=== PATIENT | male | born 1960 | race Caucasian/White ===

== ENCOUNTER 2023-04-05 15:32 | Outpatient (REF) | payer MEDICAID, SELFPAY ==
--- NOTE | ~2023-04-05 | US_ITS ---
EXAMINATION: US VENOUS ULTRASOUND WITH DOPPLER LOWER EXTREMITY, LEFT CLINICAL INFORMATION: Pain COMPARISON: None available. TECHNIQUE: Ultrasound of the deep veins is performed from the hip to the calf with compression sonography and color and pulse Doppler assessment. Spectral analysis with color-flow imaging is performed. FINDINGS: There is normal venous compression and respiratory variation and augmented flow. The visualized common femoral vein, superficial femoral vein, profunda femoral vein, popliteal vein, and the trifurcation region shows no evidence of deep venous thrombosis. There is no significant popliteal fossa cyst. US/US venous duplex LE LT IMPRESSION: No DVT demonstrated in the left lower extremity.
== END 2023-04-05 15:33 | disposition home or self-care (01) ==
LOC: HO.US 15:32
PROVIDERS: PCP Internal Medicine; Visit Provider Internal Medicine
DX: M79.605 Pain in left leg (principal)
CPT/HCPCS: 93971

== ENCOUNTER 2023-04-06 08:49 | Outpatient (REF) | payer MEDICAID, SELFPAY ==
[2023-04-06 12:25] LABS: Uric Acid 6.1 mg/dL (3.4-7.0)
== END 2023-04-06 08:50 | disposition home or self-care (01) ==
LOC: HO.HHCL 08:49
PROVIDERS: Visit Provider Internal Medicine
DX: M25.572 Pain in left ankle and joints of left foot (principal); R25.2 Cramp and spasm
CPT/HCPCS: 36415; 82550; 84550

== ENCOUNTER 2023-04-21 13:51 | Outpatient (REF) | payer MEDICAID, SELFPAY ==
--- NOTE | ~2023-04-21 | XR_ITS ---
EXAMINATION: XR LUMBOSACRAL SPINE CLINICAL INFORMATION: Chronic right-sided low back pain COMPARISON: There are no films to compare. This is due to technical failure TECHNIQUE: Three views of the lumbosacral spine. FINDINGS: Normal lordosis is maintained. There is no evidence of listhesis or compression injury. Mild scoliosis convex right apex at L2-L3. There is degenerative change here at all levels with some loss of disc height and spurring in the endplates. The inferior most vertebrae is transitional in nature. XR/XR lumbar spine 2-3V IMPRESSION: Mild degenerative changes with scoliosis. No acute finding. No listhesis or compression injury.
== END 2023-04-21 13:52 | disposition home or self-care (01) ==
LOC: HO.HHCX 13:51
PROVIDERS: Visit Provider Emergency Medicine
DX: M54.50 Low back pain, unspecified (principal); G89.29 Other chronic pain
CPT/HCPCS: 72100

== ENCOUNTER 2023-08-12 15:14 | Outpatient (REF) | payer MEDICAID, SELFPAY ==
--- NOTE | ~2023-08-12 | XR_ITS ---
EXAMINATION: XR KNEE, LEFT CLINICAL INFORMATION: Knee pain COMPARISON: None available. TECHNIQUE: Four views of the left knee. FINDINGS: No acute fracture, subluxation or joint effusion is evident. On the sunrise view, there are 2 osseous corticated fragments adjacent to the patellar apex, within the trochlea, perhaps intra-articular loose bodies XR/XR knee LT 4V IMPRESSION: Question intra-articular bodies within the patellofemoral joint space.
== END 2023-08-12 15:15 | disposition home or self-care (01) ==
LOC: HO.HHCX 15:14
PROVIDERS: Visit Provider Student in an Organized Health Care Education/Training Program
DX: M25.562 Pain in left knee (principal); G89.29 Other chronic pain
CPT/HCPCS: 73564

== ENCOUNTER 2023-10-26 13:41 | Outpatient (AMB) | payer MEDICAID, SELFPAY ==
--- NOTE | 2023-10-26 13:47 | MHC.OFFVIS ---
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 He describes his pain as sharp in nature. Most of the pain is along the medial aspect of his knee. He did injure his left knee approximately 1 year ago. He twisted his knee and had acute onset of pain. He has done physical therapy exercises which aggravated his pain. Has also tried Tylenol and anti-inflammatory medicines which gave him minimal relief. He was given a cortisone injection at his last visit which gave him no relief. The patient also reports progressively worsening neck pain. Credit Products Officer Name: [id number] Allergies aspirin [ASPIRIN] Allergy (Mild, Unverified 04/17/20 16:10) HIVES acetaminophen [Tylenol-Codeine #3] Allergy (Unknown, Verified 10/27/15 00:00) codeine [Tylenol-Codeine #3] Allergy (Unknown, Verified 10/27/15 00:00) Sulfa (Sulfonamide Antibiotics) Allergy (Unknown, Verified 10/27/15 00:00) [facility] Surgical History (Updated 10/26/23 @ 14:02 by Catina Heart CMA) Hx of neck surgery Social History (Updated 10/26/23 @ 14:03 by Catina Heart CMA) Patient Tobacco Use Status: Former Tobacco user Current occupational status: disabled Physical Exam Vital Signs: BMI result Body Mass Index 30.5 Const Other: Well-nourished well-developed very friendly male awake alert and oriented x3 in no acute distress Extrem Other: Bilateral lower extremity examination shows good capillary refill, no skin lesions noted, normal sensation light touch Left knee examination shows a minimal effusion, minimal crepitus with range of motion, tenderness along his medial joint line, positive Nayan's test, no instability Results Reviewed Results Reviewed: X-rays of the patient's left knee show mild joint space narrowing, no acute bony abnormalities Assessment & Plan Assessment & Plan (1) Left knee pain: Code(s): M25.562 - Pain in left knee Plan Mr. Knight presents with left knee pain and mechanical symptoms due to early degenerative joint disease as well as possible tearing of his medial meniscus. Thus, I will send the patient for an MRI of his left knee for further evaluation. I will see him back once the MRI is completed to discuss the findings and treatment options. I will also arrange for him to have a consultation in our pain management department for further evaluation of his progressively worsening neck pain. Feel free to call me at any time should questions regarding his orthopedic management arise. I spent 22 minutes in reviewing the patient's records and imaging studies, seeing the patient and documenting in the medical record. Orders: Orders MR knee LT wo con 10/26/23 M25.562 - Pain in left knee Referrals Pain Management Referral M54.2 - Cervicalgia Coding Level of Care Code Est Pt Level 2 (72295) Diagnoses Left knee pain M25.562
[2023-10-26 13:54] VITALS: BMI 30.5
== END 2023-10-26 14:27 | disposition home or self-care (01) ==
LOC: HO.HOS 13:41
PROVIDERS: PCP Internal Medicine; Referring Provider Internal Medicine; Visit Provider Orthopaedic Surgery
DX: M25.562 Pain in left knee (principal)
CPT/HCPCS: 99213

== ENCOUNTER → 2023-10-26 13:41 | Outpatient (BNVA) | payer MEDICAID, SELFPAY | PROVIDERS: PCP Internal Medicine; Visit Provider Orthopaedic Surgery | DX: M25.562 Pain in left knee (principal); M54.2 Cervicalgia | CPT/HCPCS: 99212 ==

== ENCOUNTER 2023-12-23 10:45 | Outpatient (REF) | payer MEDICAID, SELFPAY ==
--- NOTE | ~2023-12-23 | XR_ITS ---
EXAMINATION: XR CERVICAL SPINE CLINICAL INFORMATION: Radiculopathy cervical region. COMPARISON: None available. TECHNIQUE: 5 views of the cervical spine, inclusive of flexion and extension views, were obtained. FINDINGS: Punctate radiodensities overlie the left thoracic inlet possibly artifact versus foreign bodies and correlation with clinical exam recommended. Degenerative changes between the anterior arch of C1 and the odontoid. Straightening of the normal cervical lordosis. Visualization of C6-C7 vertebral body limited due to overlying soft tissues. Multilevel cervical spondylosis with prominent anterior osteophytes spanning C2-C7 with moderate loss of disc space height at C5-C6 and C6-C7. Minimal anterolisthesis of C4 on C5, C5 on C6, and of C6 on C7 with flexion which reduces with extension. XR/XR cervical spine w flex/ext IMPRESSION: 1. Multilevel cervical spondylosis most notable at C5-C6 and C6-C7. 2. Punctate radiodensities overlie left thoracic inlet possibly artifact versus foreign bodies and correlation with clinical exam recommended. Dedicated views of the chest with attention to this area could be considered for further evaluation.
== END 2023-12-23 10:46 | disposition home or self-care (01) ==
LOC: HO.XRAY 10:45
PROVIDERS: PCP Internal Medicine; Referring Provider Orthopaedic Surgery; Visit Provider Internal Medicine
DX: M54.12 Radiculopathy, cervical region (principal)
CPT/HCPCS: 72052; 99202

== ENCOUNTER 2023-12-23 10:45 | Outpatient (AMB) | payer MEDICAID, SELFPAY ==
--- NOTE | 2023-12-23 11:04 | MHC.OFFVIS ---
Vital Signs 12/23/23 11:06 Height 5 ft 6 in Weight 188 lb BMI 30.3 BP 143/86 H Blood Pressure Location Lt brachial Position Sitting Respiration 14 Pulse 76 Pulse Source Pulse Oximeter Pulse Oximetry (%) 95 Oxygen Delivery Method Room Air Intake Visit Reasons: CERVICALGIA Cigarette Packer Required: Yes Cigarette Packer Name: [id number] Allergies aspirin [ASPIRIN] Allergy (Mild, Verified 12/23/23 11:10) HIVES codeine [Tylenol-Codeine #3] Allergy (Unknown, Verified 12/23/23 11:10) Itching Sulfa (Sulfonamide Antibiotics) Allergy (Unknown, Verified 12/23/23 11:10) Itching Medication List - Last Reconciled 12/23/23 by Amparo Davison LPN atorvastatin 20 mg PO QAM azelastine 0.05% 1 drp ophthalmic (eye) Q12H cetirizine 10 mg PO DAILY hydrochlorothiazide 12.5 mg PO DAILY lidocaine-prilocaine 2.5-2.5 % topical Q12H PRN loratadine 10 mg PO QAM omeprazole 20 mg PO DAILY tramadol 50 mg PO DAILY HPI HPI CERVICALGIA: Details: 62-year-old male who presents today to the office for an evaluation of cervicalgia. A certified mixed signal design engineer was present during the visit. He has had neck pain for several years now. He had neck surgery in the past. Pain is rated a 6/10 on average. He reports feeling pain in his hands and legs. He reports pain in shoulders that radiates to both his arms associated with numbness and tingling in his fingers. He used to receive back injections in the past. He has not done physical therapy for his neck pain in the recent past. [facility] Surgical History (Updated 10/26/23 @ 14:02 by Catina Heart CMA) Hx of neck surgery Social History (Updated 10/26/23 @ 14:03 by Catina Heart CMA) Patient Tobacco Use Status: Former Tobacco user Current occupational status: disabled Review of Systems Const All systems reviewed & are unremarkable except as noted in HPI and below Physical Exam Vital Signs: Last Vital Signs Pulse 76 12/23/23 11:06 Resp 14 12/23/23 11:06 BP 143/86 H 12/23/23 11:06 Pulse Ox 95 12/23/23 11:06 Oxygen Delivery Method Room Air 12/23/23 11:06 BMI result Body Mass Index 30.3 General: Appears afebrile. Alert and oriented. Mood and affect appropriate. Follows and participates in conversation appropriately. Respiratory effort is unlabored. Able to transition from sit to stand unassisted. Ambulates with bilaterally normal heel strike and toe off. Hand strength is intact bilaterally. Bilateral hand outpatient therapist 5/5, finger adduction and abduction 5/5. Hand outpatient therapist on the right is slightly weaker than the left, but strong. Results Reviewed Results Reviewed: No imaging is available for review. Assessment & Plan Assessment & Plan (1) Cervical radiculopathy: Code(s): M54.12 - Radiculopathy, cervical region Category: Medical Plan A referral was provided to physical therapy for neck and back pain for two months. A script was also provided to the patient for physical therapy. If PT worsens his pain symptoms, he will follow up sooner. If the pain symptoms continue after two months of PT, we will order an MRI scan for further evaluation.? I ordered an x-ray of the cervical spine today to rule out instability. The patient can visit the radiology department today to complete the x-ray.? Follow up in three months. Scribed for Dr. Perkins by Gopi Milligan, medical claims representative, on 12/23/2023. I, Dr. Perkins, have personally reviewed and agree with the information entered by the scribe. Orders: Orders XR cervical spine w flex/ext 12/23/23 M54.12 - Radiculopathy, cervical region PT Evaluation and Treatment 12/23/23 M54.12 - Radiculopathy, cervical region Coding Level of Care Code New Pt Level 3 (72595) Diagnoses Cervical radiculopathy M54.12
[2023-12-23 11:06] VITALS: BP 143/86; PULSE 76; RESP 14; O2SAT 95; BMI 30.3
== END 2023-12-23 11:25 | disposition home or self-care (01) ==
PROVIDERS: PCP Internal Medicine; Referring Provider Orthopaedic Surgery; Visit Provider Internal Medicine
DX: M54.12 Radiculopathy, cervical region (principal)
CPT/HCPCS: 99203

== ENCOUNTER 2023-12-29 08:42 | Outpatient (REF) | payer MEDICAID, SELFPAY ==
[2023-12-29 11:57] LABS: Anion Gap 12 (12-20); Blood Urea Nitrogen 9 mg/dL (9-16); Calcium 9.2 mg/dL (8.4-10.2); Carbon Dioxide 27 mmol/L (22-29); Chloride 106 mmol/L (96-108); Cholesterol 240 mg/dL (<200); Estimated Glomerular Filt Rate > 60; Glucose Random 136 mg/dL (60-115); HDL Cholesterol 35 mg/dL (>40); LDL Cholesterol Calculated 177 mg/dL (<100); Potassium 3.5 mmol/L (3.3-5.1); Sodium 141 mmol/L (135-145); Triglycerides 140 mg/dL (<150)
== END 2023-12-29 08:43 | disposition home or self-care (01) ==
LOC: HO.HHCL 08:42
PROVIDERS: Visit Provider Internal Medicine Geriatric Medicine
DX: I10 Essential (primary) hypertension (principal); E78.5 Hyperlipidemia, unspecified
CPT/HCPCS: 36415; 80048; 80061

== ENCOUNTER 2024-01-09 17:46 | Outpatient (REF) | payer MEDICAID, SELFPAY | END 2024-01-09 17:47 | disposition home or self-care (01) | LOC: HO.MRI 17:46 | PROVIDERS: PCP Internal Medicine; Visit Provider Orthopaedic Surgery | DX: Z13.89 Encounter for screening for other disorder (principal) ==

== ENCOUNTER 2024-01-25 15:46 | Outpatient (REF) | payer MEDICAID, SELFPAY ==
--- NOTE | ~2024-01-25 | XR_ITS ---
EXAMINATION: X-ray Pre-MRI screening CLINICAL INFORMATION: Pre-MRI screening COMPARISON: None. TECHNIQUE: AP view of the chest, 2 views of the right forearm and 2 views of the left femur FINDINGS: Chest: No medical office manager or foreign body seen. The cardiac silhouette is slightly enlarged. The thoracic aorta may be ectatic. Lung volumes are low. Lungs are clear. No pleural effusion or pneumothorax. Right forearm: Multiple radiopaque soft tissue foreign bodies project over the distal humeral shaft and anterior medial soft tissues in the upper arm. Smaller radiopaque soft tissue foreign bodies project over the radial side of the forearm. No fracture or dislocation. Normal joint spaces. Left femur: No radiopaque foreign body. Bone alignment is normal. No fracture or dislocation. Mild arthritis at the left hip joint with small osteophytes. Small osteophytes at the patellofemoral joint and osteophyte at the patellar tendon insertion. Rotated lateral view difficult to assess for joint effusion. No joint effusion appreciated. XR/XR pre mri screening IMPRESSION: Foreign bodies seen in the upper arm adjacent to the distal humerus and proximal forearm adjacent to the shaft of the radius. No foreign body or medical office manager seen in the chest or left femur.
--- NOTE | ~2024-01-25 | MR_ITS ---
EXAMINATION: MR KNEE WITHOUT CONTRAST, LEFT CLINICAL INFORMATION: Pain in the left knee. COMPARISON: X-ray of the left knee August 2023. TECHNIQUE: MRI of the knee without contrast was performed using routine sequences on a high-field scanner. FINDINGS: MENISCI: Medial Meniscus: There is oblique increased signal extending from the periphery of the meniscus to the tibial articular surface and the posterior horn and body indicative of meniscal tear. Tiny meniscal cyst abuts the periphery of the posterior horn. Lateral Meniscus: Intact. LIGAMENTS: Cruciate: There is mucoid degeneration of the anterior cruciate ligament. PCL intact. Enthesopathic cysts noted at the anterior cruciate ligament tibial attachment. Collateral: Intact. EXTENSOR MECHANISM: Intact. ARTICULAR CARTILAGE/BONE: Patellofemoral Compartment: Normal. Medial Compartment: Normal. Lateral Compartment: Normal. JOINT FLUID AND BURSAE: Trace Andrews's cyst. MR/MR knee LT wo con IMPRESSION: 1. Tear of the medial meniscus. 2. Mucoid degeneration of the anterior cruciate ligament.
== END 2024-01-25 15:47 | disposition home or self-care (01) ==
LOC: HO.MRI 15:46
PROVIDERS: PCP Internal Medicine; Visit Provider Orthopaedic Surgery
DX: M25.562 Pain in left knee (principal)
CPT/HCPCS: 73721

== ENCOUNTER 2024-02-07 13:32 | Outpatient (AMB) | payer MEDICAID, SELFPAY ==
--- NOTE | 2024-02-07 13:33 | MHC.OFFVIS ---
Intake Visit Reasons: OV-LT knee MRI review Intake Note: Paul 62 year old male presents with complaints of progressively worsening left knee pain and giving way. He describes his pain as sharp in nature. Most of the pain is along the medial aspect of his knee. He did injure his left knee approximately 1 year ago. He twisted his knee and had acute onset of pain. He has done physical therapy exercises which aggravated his pain. Has also tried Tylenol and anti-inflammatory medicines which gave him minimal relief. He was given a cortisone injection at his last visit which gave him no relief. The patient also reports progressively worsening neck pain. Communications Project Manager Required: Yes Communications Project Manager Language: Process Engineering Intern Services: Communications Project Manager Present Communications Project Manager Name: GILL Adkins/JOSIAS Allergies aspirin [ASPIRIN] Allergy (Mild, Verified 02/07/24 13:33) HIVES codeine [Tylenol-Codeine #3] Allergy (Unknown, Verified 02/07/24 13:33) Itching Sulfa (Sulfonamide Antibiotics) Allergy (Unknown, Verified 02/07/24 13:33) Itching Medication List - Last Reconciled 02/07/24 by Joni Draper MD atorvastatin 20 mg PO QAM azelastine 0.05% 1 drp ophthalmic (eye) Q12H cetirizine 10 mg PO DAILY hydrochlorothiazide 12.5 mg PO DAILY lidocaine-prilocaine 2.5-2.5 % topical Q12H PRN loratadine 10 mg PO QAM omeprazole 20 mg PO DAILY tramadol 50 mg PO DAILY PFSH Surgical History Hx of neck surgery Social History Patient Tobacco Use Status: Former Tobacco user Current occupational status: disabled Physical Exam Const Other: Well-nourished well-developed very friendly male awake alert and oriented x3 in no acute distress Extrem Other: Bilateral lower extremity examination shows good capillary refill, no skin lesions noted, normal sensation light touch Left knee examination shows a minimal effusion, mild crepitus with range of motion, tenderness along his medial and lateral joint lines, positive Nayan's test, no instability Results Reviewed Results Reviewed: MRI of the patient's left knee shows mild diffuse degenerative changes as well as tearing of his medial and lateral menisci, no acute bony abnormalities Assessment & Plan Assessment & Plan (1) Left knee pain: Code(s): M25.562 - Pain in left knee Category: Medical Plan Mr. Knight presents with left knee pain and mechanical symptoms due to tearing of his medial and lateral menisci. I had a lengthy discussion with the patient regarding the treatment options. At this point he appears to be failing continued non operative treatments. The risks and benefits arthroscopic surgery were discussed at length with the patient. The patient is considering undergoing left knee arthroscopic surgery later this year. He will contact my office to pick a surgery date if he chooses to do so. Does understand that he may not get 100% relief from the surgery depending on the severity of his degenerative changes. Surgery would most likely involve left knee arthroscopic partial medial and lateral meniscectomies. Feel free to call me at any time should questions regarding his orthopedic management arise. I spent 21 minutes in reviewing the patient's records and imaging studies, seeing the patient and documenting in the medical record. Coding Level of Care Code Est Pt Level 3 (05632) Diagnoses Left knee pain M25.562
== END 2024-02-07 13:40 | disposition home or self-care (01) ==
LOC: HO.HOS 13:32
PROVIDERS: PCP Internal Medicine; Referring Provider Internal Medicine; Visit Provider Orthopaedic Surgery
DX: M25.562 Pain in left knee (principal); S83.242A Other tear of medial meniscus, current injury, left knee, initial encounter; S83.282A Other tear of lateral meniscus, current injury, left knee, initial encounter
CPT/HCPCS: 99213

== ENCOUNTER → 2024-02-07 13:32 | Outpatient (BNVA) | payer MEDICAID, SELFPAY | PROVIDERS: PCP Internal Medicine; Visit Provider Orthopaedic Surgery | DX: S83.282A Other tear of lateral meniscus, current injury, left knee, initial encounter (principal); S83.242A Other tear of medial meniscus, current injury, left knee, initial encounter | CPT/HCPCS: 99212 ==

== ENCOUNTER 2024-02-22 21:49 | Emergency (ER) | payer MEDICAID, SELFPAY ==
[2024-02-22 22:02] VITALS: BP 137/80; PULSE 70; RESP 18; TEMP 36.8; O2SAT 98; BMI 30.5
[2024-02-23 00:24] VITALS: BP 165/95; PULSE 63; RESP 16; TEMP 36.4; O2SAT 97
--- NOTE | 2024-02-23 01:27 | PC.NURSE ---
Patient was lying in bed calm and cooperative. of patient was screaming we need a doctor. This nurse went in to see what was happening and how i could help and they said, are you the doctor. I explained to them that i was their nurse and would be providing their care tonight. They said we are leaving and got up and walked out.
== END 2024-02-23 01:30 | disposition left against medical advice (07) ==
PROVIDERS: Emergency Provider Emergency Medicine
DX: R09.89 Other specified symptoms and signs involving the circulatory and respiratory systems (principal)
CPT/HCPCS: 99281; 99283

== ENCOUNTER 2024-06-07 09:52 | Outpatient (REF) | payer MEDICAID, SELFPAY ==
[2024-06-07 11:51] LABS: Alanine Aminotransferase 24 U/L (0-40); Albumin Level 4.1 g/dL (3.5-5.0); Alkaline Phosphatase 62 U/L (39-117); Anion Gap 12 (12-20); Aspartate Amino Transferase 29 U/L (5-37); Bilirubin Total 0.3 mg/dL (0.0-1.0); Blood Urea Nitrogen 12 mg/dL (9-16); Carbon Dioxide 25 mmol/L (22-29); Chloride 106 mmol/L (96-108); Cholesterol 227 mg/dL (<200); Estimated Glomerular Filt Rate > 60; Glucose Random 163 mg/dL (60-115); HDL Cholesterol 33 mg/dL (>40); LDL Cholesterol Calculated 160 mg/dL (<100); Potassium 3.9 mmol/L (3.3-5.1); Sodium 139 mmol/L (135-145); Total Protein 7.5 g/dL (6.5-8.0); Triglycerides 174 mg/dL (<150)
[2024-06-07 12:15] LABS: Prostate Specific Antigen 5.86 ng/mL (<0.05-4.0)
== END 2024-06-07 09:53 | disposition home or self-care (01) ==
LOC: HO.HHCL 09:52
PROVIDERS: Visit Provider Internal Medicine Geriatric Medicine
DX: Z12.5 Encounter for screening for malignant neoplasm of prostate (principal); I10 Essential (primary) hypertension; Z79.899 Other long term (current) drug therapy
CPT/HCPCS: 36415; 80053; 80061; 84153

== ENCOUNTER 2024-10-16 09:26 | Outpatient (REF) | payer MEDICAID, SELFPAY ==
[2024-10-16 11:20] LABS: MANUAL DIFF FLAG NO
[2024-10-16 11:30] LABS: Basophils Absolute Auto 0.1 X10*3/uL (0.0-0.2); Basophils Percent Auto 0.6 % (0-2); Eosinophils Absolute Auto 0.2 X10*3/uL (0.0-0.4); Eosinophils Percent Auto 2.3 % (0-4); Hemoglobin 14.6 g/dl (14.0-18.0); Imm Gran Abs Auto 0.09 X10*3/uL (0.00-0.03); Imm Gran Pct Auto 1.1 % (0.0-0.4); Lymphocytes Absolute Auto 3.1 X10*3/uL (1.2-4.9); Lymphocytes Percent Auto 39.8 % (20-40); Mean Corpuscular HGB Conc 34.8 g/dl (31.0-36.0); Mean Corpuscular Hemoglobin 30.4 pg (27.0-33.0); Mean Corpuscular Volume 87.3 fL (80.0-98.0); Mean Platelet Volume 10.4 fL (9.4-12.4); Monocytes Absolute Auto 0.6 X10*3/uL (0.1-1.2); Monocytes Percent Auto 7.9 % (2-11); Neutrophils Absolute Auto 3.8 x10*3/uL (2.0-8.3); Neutrophils Percent Auto 48.3 % (45-73); Platelet Count 356 X10*3/uL (160-400); Red Blood Count 4.81 X10*6/uL (4.60-5.80); Red Cell Distribution Width 13.8 % (11.0-16.0); White Blood Count 7.9 X10*3/uL (4.8-10.8)
[2024-10-16 11:32] LABS: Anion Gap 12 (12-20); Blood Urea Nitrogen 10 mg/dL (9-16); Calcium 8.7 mg/dL (8.4-10.2); Carbon Dioxide 25 mmol/L (22-29); Chloride 108 mmol/L (96-108); Estimated Glomerular Filt Rate > 60; Glucose Random 206 mg/dL (60-115); Potassium 3.7 mmol/L (3.3-5.1); Sodium 141 mmol/L (135-145)
[2024-10-16 11:55] LABS: Prostate Specific Antigen 5.92 ng/mL (<0.05-4.0)
== END 2024-10-16 09:27 | disposition home or self-care (01) ==
LOC: HO.HHCL 09:26
PROVIDERS: Visit Provider Internal Medicine Geriatric Medicine
DX: Z01.818 Encounter for other preprocedural examination (principal); R97.20 Elevated prostate specific antigen [PSA]
CPT/HCPCS: 36415; 80048; 84153; 85025

== ENCOUNTER 2025-01-28 09:21 | Outpatient (REF) | payer MEDICAID, SELFPAY ==
[2025-01-28 11:52] LABS: Estimated Average Glucose 189 mg/dL; Hemoglobin A1c % 8.2 % (<6.0)
== END 2025-01-28 09:22 | disposition home or self-care (01) ==
LOC: HO.HHCL 09:21
PROVIDERS: PCP Internal Medicine Geriatric Medicine; Visit Provider Internal Medicine Geriatric Medicine
DX: R73.9 Hyperglycemia, unspecified (principal)
CPT/HCPCS: 36415; 83036

== ENCOUNTER 2025-03-28 15:36 | Outpatient (REF) | payer MEDICAID, SELFPAY ==
--- NOTE | ~2025-03-28 | XR_ITS ---
EXAMINATION: XR THORACIC SPINE CLINICAL INFORMATION: PAIN COMPARISON: None available. TECHNIQUE: 3 views of the thoracic spine were obtained. FINDINGS: There is no significant scoliosis. There is a normal thoracic kyphosis. There is normal alignment without subluxation. There is no fracture, compression deformity, or suspicious bone lesion. There is normal facet alignment. There is mild multilevel disc degeneration present. No soft tissue abnormalities. XR/XR thoracic spine 2V IMPRESSION: 1. No acute findings of the thoracic spine. Mild multilevel disc degeneration. Electronically signed by: Tony Bradley MD 03/28/2025 04:51 PM EDT
--- OUTSIDE RECORDS SUMMARY | 2025-03-28 15:00 | XMS_ITS | Encounter Summary ---
Author Organization [employer] Address [address] [facility] [address] [place] [address] Care Team Providers Care Letter Of Credit Clerk Name Role Phone Name, Korey MAIN Primary Care Provider [phone] Reason for Visit * Reason Comments Back Pain Encounter Details Date Type Department Care Team ([facility] st Contact Info) Description 03/28/2025 3:00 PM EDT Office Visit [facility] [place] [address] [place] [address] Mid back pain (Primary Dx) Social History Tobacco Use Types Packs/Day Years Used Date Smoking Tobacco: Former Cigarettes Passive Smoke Exposure: Past Smokeless Tobacco: Former Tobacco Cessation:Counseling Given: Not Answered Alcohol Use Standard Drinks/Week Comments Never 0 (1 standard drink = 0.6 oz pur e alcohol) Alcohol Answer Date Recorded Frequency of Alcohol Consumption Not on file 06/05/2024 Average Number of Drinks Not on file 024 Frequency of Binge Drinking Not on file 11/2023 Score 0 06/05/2024 Depression Answer Date Recorded Patient Health Questionnaire-9 Score 0 09/14/2023 Patient Health Questionnaire-9 Score 0 09/14/2023 Last PHQ-9: Questionnaire Data Not on file 0 09/14/2023 Housing Stability Answer Date Recorded What is your housing situation today? I have ronald ramírez 09/14/[address] you li ve. Do you have problems with any of the following? None of the above 09/14/2023 Food Insecurity Answer Date Recorded Within the past 12 months, y ou worried that your food would run out before you got money to buy more: Never True 09/14/2023 Within the past 12 months,th e food you bought just didn't last and you didn't have enough money to get more: Never True Transportation Answer Date Recorded In the past 12 months, has l ack of transportation kept you from medical appts, meetings, work or from getting things needed for daily living? No 09/14/2023 Utilities Answer Date Recorded In the past 12 months, has t he electric, gas, oil or water company threatened to shut off services in your home? No 09/14/2023 Depression Answer Date Recorded Patient Health Questionnaire-2 Score 0 09/14/2023 Sex and Gender Information Value Date Recorded Sex Assigned at Male 05/31/2022 10:14 AM EDT Legal Sex Male 10:14 AM EDT Gender Identity Male 05/31/2022 10:14 AM EDT Sexual Orientation Choose not to disclose 2021 10:14 AM EDT documented as of this encounter Last Filed Vital Signs Vital Sign Reading Time Taken Comments Blood Pressure 148/84 03/28/2025 3:12 PM EDT Pulse 75 03/28/2025 3:12 PM EDT Temperature 36.8 C (98.2 F) 03/28/2025 3:12 PM EDT Respiratory Rate 18 03/28/2025 3:12 PM EDT Oxygen Saturation 97% 03/28/2025 3:12 PM EDT Inhaled Oxygen Concentration - - Weight 82.6 kg (182 lb) 03/28/2025 3:12 PM EDT Height - - Body Mass Index 26.88 02/15/2025 2:53 PM EDT documented in this encounter Plan of Treatment Upcoming Encounters Date Type Department Care Team (Late st Contact Info) Description 04/03/2025 11:30 AM EDT Clinical Support [facility] [address] [place] [phone] Katharina Matt RN 06/17/2025 3:15 PM EST Office Visit [facility] [address] [place] [phone] Name, MD Korey [address] [place] [phone] Scheduled Orders Name Type Priority Associated Diagnoses Orde r Schedule XR Thoracic Spine 2 Views Imaging Routine Mid back pain Expected: 03/28/2025, Expires: 03/28/2026 documented as of this encounter Visit Diagnoses Diagnosis Mid back pain- Primary documented in this encounter Additional Health Concerns Assessment Noted Time PHQ-9 Depression Total Score: 0 09/14/19 24 2:31 PM EST documented as of this encounter Care Teams Letter Of Credit Clerk Relationship Specialty Start Date End Date Name, MD Korey [address] [place] [address] PCP - General Family Medicine 11/05/15 documented as of this encounter
--- OUTSIDE RECORDS SUMMARY | 2025-03-28 16:02 | XMS_ITS | Encounter Summary ---
Author Organization [employer] Address [address] [facility] [address] [place] [address] Care Team Providers Care Returns Processor Name Role Phone Name, Korey MAIN Primary Care Provider [phone] Encounter Details Date Type Department Care Team (Latest Contact Info) Description 03/28/2025 Travel Social History Tobacco Use Types Packs/Day Years Used Date Smoking Tobacco: Former Cigarettes Passive Smoke Exposure: Past Smokeless Tobacco: Former Alcohol Use Standard Drinks/Week Comments Never 0 [...] AM EDT documented as of this encounter Plan of Treatment Upcoming Encounters Date Type Department Care Team (Late st Contact Info) Description 04/03/2025 11:30 AM EDT Clinical Support [address] [phone] Katharina Matt RN 06/17/2025 3:15 PM EST Office Visit [address] [address] Name, MD Korey [address] [place] [phone] documented as of this encounter Visit Diagnoses Not on filedocumented in this encounter Additional Health Concerns Assessment Noted Time PHQ-9 Depression Total Score: 0 09/14/19 24 2:31 PM EST documented as of this encounter Care Teams Returns Processor Relationship Specialty Start Date End Date Name, MD Korey [address] [place] [phone] PCP - General Family Medicine 11/05/15 documented as of this encounter
--- OUTSIDE RECORDS SUMMARY | 2025-03-28 16:02 | XMS_ITS | Encounter Summary ---
Author Organization [employer] Address [address] [place] [address] [address] [place] [address] Care Team Providers Care Body And Frame Man Name Role Phone Name, Korey MAIN Primary Care Provider [phone] Reason for Visit * Reason Comments Med Refill Encounter Details Date Type Department Care Team (Late Contact Info) Description 04/28/2023 Refill [facility] [address] [place] [address] Name, MD Korey [address] [place] [address] Arthralgia of multiple joints Social History Tobacco Use Types Packs/Day Years Used Date Smoking Tobacco: Never Smokeless Tobacco: Never Alcohol Use Standard Drinks/Week Comments Never 0 (1 standard drink = 0.6 oz pur e alcohol) PHQ-2 Answer Date Recorded Patient Health Questionnaire-2 Score 0 08/18/2022 Depression Answer Date Recorded Patient Health Questionnaire-2 Score 0 08/18/2022 Sex and Gender Information Value Date Recorded Sex Assigned at Male 05/31/2022 10:14 AM EDT Legal Sex Male 10:14 AM EDT Gender Identity Male 05/31/2022 10:14 AM EDT Sexual Orientation Choose not to disclose 2021 10:14 AM EDT documented as of this encounter Plan of Treatment Upcoming Encounters Date Type Department Care Team (Late Contact Info) Description 04/03/2025 11:30 AM EDT Clinical Support [facility] [address] [place] [phone] Katharina Matt RN 06/17/2025 3:15 PM EST Office Visit [facility] [address] [place] [phone] Name, MD Korey [address] [place] [address] documented as of this encounter Visit Diagnoses Diagnosis Arthralgia of multiple joints Pain in joint, multiple sites documented in this encounter Care Teams Body And Frame Man Relationship Specialty Start Date End Date Name, MD Korey [address] [place] [address] PCP - General Family Medicine 11/05/15 documented as of this encounter
--- OUTSIDE RECORDS SUMMARY | 2025-03-28 16:02 | XMS_ITS | Encounter Summary ---
Author Organization [employer] Address [address] [place] [address] 7 [place] [address] Care Team Providers Care Detective Sergeant Name Role Phone NameKorey MD Primary Care Provider [phone] Reason for Visit * Reason Comments Med Refill Encounter Details Date Type Department Care Team ([facility] Contact Info) Description 04/05/[address] [phone] Korey Ocampo MD [address] [place] [phone] Med Refill Social History Tobacco Use Types Packs/Day Years [...] Description 04/03/2025 11:30 AM EDT Clinical Support [address] [phone] Katharina Matt RN 06/17/2025 3:15 PM EST Office Visit [address] [phone] Korey Ocampo MD [address] [place] [address] documented as of this encounter Visit Diagnoses Diagnosis Non-seasonal allergic rhinitis, unspecified trigger documented in this encounter Care Teams Detective Sergeant Relationship Specialty Start Date End Date Name, [place] [address] PCP - General Family Medicine 11/05/15 documented as of this encounter
--- OUTSIDE RECORDS SUMMARY | 2025-03-28 16:02 | XMS_ITS | Encounter Summary ---
Author Organization [employer] Address [address] [facility] 7t [place] [address] Care Team Providers Care Esl Professor Name Role Phone Name, Korey MAIN Primary Care Provider [phone] Reason for Visit * Reason Onset Date Comments oct recalls 03/28/2025 Encounter Details Date Type Department Care Team (Late st Contact Info) Description 03/28/[address] [facility] [address] [place] [address] Alex Márquez MA oct recalls Social History Tobacco Use Types Packs/Day Years [...] AM EDT documented as of this encounter Miscellaneous Notes * Telephone Encounter - Alex Márquez MA - 03/28/2025 1:47 PM EDT Telephone call to patient to schedule the following recall: Visit type: Follow up Appointment notes: HTN and DM Patient agree to appointment on 06/17/25 at 3;15 PM with Name. documented in this encounter Plan of Treatment Upcoming Encounters Date Type Department Care Team (Late st Contact Info) Description 04/03/2025 11:30 AM EDT Clinical Support [facility] [address] [place] [phone] Katharina Matt RN 06/17/2025 3:15 PM EST Office Visit [facility] [address] [place] [phone] Name, MD Korey [address] [place] [address] documented as of this encounter Visit Diagnoses Not on filedocumented in this encounter Additional Health Concerns Assessment Noted Time PHQ-9 Depression Total Score: 0 09/14/19 24 2:31 PM EST documented as of this encounter Care Teams Esl Professor Relationship Specialty Start Date End Date NameKorey MD [address] [place] [phone] PCP - General Family Medicine 11/05/15 documented as of this encounter
--- OUTSIDE RECORDS SUMMARY | 2025-03-28 16:02 | XMS_ITS | Encounter Summary ---
Author Organization [employer] Address [address] [facility] 7t [place] [address] Care Team Providers Care Warehouse General Laborer Name Role Phone Name, Korey MAIN Primary Care Provider [phone] Reason for Visit * Reason Onset Date Comments Ortho Appt 09/28/2023 Encounter Details Date Type Department Care Team ([facility] st Contact Info) Description 09/28/2023 Telephone [facility] [address] [place] [address] Name, MD Korey [address] [place] [address] Ortho Appt Social History Tobacco Use Types Packs/Day Years Used Date Smoking Tobacco: Former Cigarettes Passive Smoke Exposure: Never Smokeless Tobacco: Never Alcohol Use Standard Drinks/Week Comments Never 0 (1 standard drink = 0.6 oz pur e alcohol) Depression Answer Date Recorded Patient Health Questionnaire-9 [...] encounter Miscellaneous Notes * Telephone Encounter - Ca Wood - 09/28/2023 12:06 PM EST Pt call requesting senior medical writer to schedule appt with [facility], senior medical writer do so and make appt for pt in October 25 at 2:00 PM documented in this encounter Plan of Treatment Upcoming Encounters Date Type Department Care Team (Late st Contact Info) Description 04/03/2025 11:30 AM EDT Clinical Support [facility] [address] [place] [phone] Katharina Matt RN 06/17/2025 3:15 PM EST Office Visit [facility] [address] [place] [phone] Name, MD Korey [address] [place] [address] documented as of this encounter Visit Diagnoses Not on filedocumented in this encounter Additional Health Concerns Assessment Noted Time PHQ-9 Depression Total Score: 0 09/14/19 24 2:31 PM EST documented as of this encounter Care Teams Warehouse General Laborer Relationship Specialty Start Date End Date NameKorey MD [address] [place] [phone] PCP - General Family Medicine 11/05/15 documented as of this encounter
--- OUTSIDE RECORDS SUMMARY | 2025-03-28 16:02 | XMS_ITS | Encounter Summary ---
Author Organization [employer] Address [address] [facility] 7t [place] [address] Care Team Providers Care Audio Video Repairer Name Role Phone Name, Korey MAIN Primary Care Provider [phone] Reason for Visit * Reason Comments Med Refill Encounter Details Date Type Department Care Team (Late st Contact Info) Description 07/26/2023 Refill [facility] [address] [place], [place] [phone] Name, MD Korey [address] [place], [place] [phone] Social History Tobacco Use Types Packs/Day Years Used Date Smoking Tobacco: Never Smokeless Tobacco: Never Alcohol Use Standard Drinks/Week Comments Never 0 (1 standard drink = 0.6 oz pur e alcohol) PHQ-2 Answer Date Recorded Patient Health Questionnaire-2 Score 0 08/18/2022 Housing Stability Answer Date Recorded What is your housing situation today? I have ronald ramírez 05/26/[address] you li ve. Do you have problems with any of the following? None of the above 05/26/2023 Food Insecurity Answer Date Recorded Within the past 12 months, y ou worried that your food would run out before you got money to buy more: Never True 05/26/2023 Within the past 12 months,th e food you bought just didn't last and you didn't have enough money to get more: Never True Transportation Answer Date Recorded In the past 12 months, has l ack of transportation kept you from medical appts, meetings, work or from getting things needed for daily living? No 05/26/2023 Utilities Answer Date Recorded In the past 12 months, has t he electric, gas, oil or water company threatened to shut off services in your home? No 05/26/2023 Depression Answer Date Recorded Patient Health Questionnaire-2 [...] Description 04/03/2025 11:30 AM EDT Clinical Support [facility] [address] [place] [address] Katharina Matt RN 06/17/2025 3:15 PM EST Office Visit [facility] [address] [place] [phone] Name, MD Korey [address] [place] [address] documented as of this encounter Visit Diagnoses Not on filedocumented in this encounter Care Teams Audio Video Repairer Relationship Specialty Start Date End Date Name, MD Korey [address] [place] [address] PCP - General Family Medicine 11/05/15 documented as of this encounter
--- OUTSIDE RECORDS SUMMARY | 2025-03-28 16:02 | XMS_ITS | Encounter Summary ---
Author Organization [employer] Address [address] [place] [address] 7t [place] [address] Care Team Providers Care Field Sampling Technician Name Role Phone Name, Korey MAIN Primary Care Provider [phone] Reason for Visit * Reason Comments Med Refill Encounter Details Date Type Department Care Team (Late Contact Info) Description 04/11/2023 Refill [facility] [address] [place], [place] [phone] [facility] [address] [place], [place] [phone] Arthralgia of multiple joints Social History Tobacco [...] Description 04/03/2025 11:30 AM EDT Clinical Support [address] [address] Katharina Matt RN 06/17/2025 3:15 PM EST Office Visit [address] [phone] Name, MD Korey [address] [place] [address] documented as of this encounter Visit Diagnoses Diagnosis Arthralgia of multiple joints Pain in joint, multiple sites documented in this encounter Care Teams Field Sampling Technician Relationship Specialty Start Date End Date Name, MD Korey [address] [place] [address] PCP - General Family Medicine 11/05/15 documented as of this encounter
--- OUTSIDE RECORDS SUMMARY | 2025-03-28 16:02 | XMS_ITS | Encounter Summary ---
Author Organization [employer] Address [address] [facility] 7t [place] [address] Care Team Providers Care Specialist Field Engineer Name Role Phone Name, Korey MAIN Primary Care Provider [phone] Reason for Visit * Reason Comments Med Refill Encounter Details Date Type Department Care Team ([facility] st Contact Info) Description 10/11/2023 Refill [facility] [address] [place], [place] [phone] Name, MD Korey [address] [place] [address] Social History Tobacco Use Types Packs/Day Years [...] Description 04/03/2025 11:30 AM EDT Clinical Support [address] [address] Katharina Matt RN 06/17/2025 3:15 PM EST Office Visit [address] [address] Name, MD Korey [address] [place] [address] documented as of this encounter Visit Diagnoses Not on filedocumented in this encounter Additional Health Concerns Assessment Noted Time PHQ-9 Depression Total Score: 0 09/14/19 24 2:31 PM EST documented as of this encounter Care Teams Specialist Field Engineer Relationship Specialty Start Date End Date NameKorey MD [address] [place] [address] PCP - General Family Medicine 11/05/15 documented as of this encounter
--- OUTSIDE RECORDS SUMMARY | 2025-03-28 16:02 | XMS_ITS | Encounter Summary ---
Author Organization [employer] Address [address] [facility] 7t [place] [address] Care Team Providers Care Meter Reader Inspector Name Role Phone Name, Korey MAIN Primary Care Provider [phone] Encounter Details Date Type Department Care Team ([facility] st Contact Info) Description 01/28/2025 Results Follow-Up [facility] [address] [place], [place] [phone] Name, MD Korey [address] [place] [address] Hemoglobin A1c Social History Tobacco Use Types Packs/Day Years [...] encounter Miscellaneous Notes * Telephone Encounter - Angela Caro RN - 01/28/2025 12:28 PM EDT T/C to pt via [employer] interpreter Juliana #[id number]. Advised of message from PCP. Pt declines appt offeredwith pcp today. States he will be at [facility]. RN asked if it possible for pt to change plans d/t urgent need for follow up. Pt states that he will be at [facility] and cannot miss it. Pt also states he isnot available tomorrow but agrees to come to [facility] as soon as his able to. * Telephone Encounter - Angela Caro RN - 01/28/2025 12:20 PM EDT ----- Message from Korey Ocampo MD sent at 01/28/2025 12:18 PM EDT ----- This is consistent with DM, can you put him in my schedule today to start him on meds and dietary recommendations ----- Message ----- From: Interface, Lab Results In Sent: 01/28/2025 11:52 AM EDT To: Korey Ocampo MD documented in this encounter Plan of Treatment Upcoming Encounters Date Type Department Care Team (Late st Contact Info) Description 04/03/2025 11:30 AM EDT Clinical Support [address] [address] Katharina Matt, RN 06/17/2025 3:15 PM EST Office Visit [address] [address] Name, MD Korey [address] [place] [address] documented as of this encounter Visit Diagnoses Not on filedocumented in this encounter Additional Health Concerns Assessment Noted Time PHQ-9 Depression Total Score: 0 09/14/19 24 2:31 PM EST documented as of this encounter Care Teams Meter Reader Inspector Relationship Specialty Start Date End Date Name, MD Korey [address] [place] [address] PCP - General Family Medicine 11/05/15 documented as of this encounter
--- OUTSIDE RECORDS SUMMARY | 2025-03-28 16:02 | XMS_ITS | Clinical Summary ---
Author Organization [employer] Address [address] [place] [address] [address] [place] [address] Care Team Providers Care Director Advertising Name Role Phone Name, Korey MAIN Primary Care Provider [phone] Allergies Active Allergy Reactions Criticality Noted Date Comments Acetaminophen 12/04/2010 Other reaction(s): unspecified Acetaminophen-Codeine 02/21/2012 Aspirin 12/04/2010 Other reaction(s): unspecified Codeine 12/04/2010 Other reaction(s): unspecified Sulfamethoxazole 12/04/2010 Other reaction(s): unspecified Sulfamethoxazole-Trimethoprim 2011 Trimethoprim 12/04/2010 Other reaction(s): unspecified Medications White Petrolatum-Minera l Oil (Wh Petrol-Mineral Oil-Lanolin) 0.1-0.1 % ointment Use TID to both eyes prn irritation 022 Active Multiple Vitamins-Minerals (Multi-Day Plus Minerals) tablet one tab once a day 022 Active mirtazapine (Remeron) 30 MG tablet Take 1 tablet by mouth at bed time. Active loratadine (Claritin) 10 MG tablet Take 1 tablet (10 mg) by mouth in the morning. 30 tablet 023 Active Blood Pressure kitIndications:Be nign essential HTN Use as directed daily 1 kit 023 Active omeprazole (PriLOSEC) [address] capsuleIndication s:Heartburn TAKE 1 CAPSULE BY MOUTH DAILY 30-60 MINUTES BEFORE A MEAL. 90 capsule 023 Active sodium chloride (Deep Sea Nasal [place]) 0.65 % nasal sprayIndications: Acute rhinosinusitis USE 1-2 SPRAYS IN EACH NOSTRIL EVERY 2 TO 3 HOURS NEEDED FOR NASAL CONGESTION 44 mL Active amLODIPine (Norvasc) 10 MG tablet Take 1 tablet (10 mg) by mouth Once per day. 30 tablet 024 2024 Active atorvastatin (Lipitor) 40 MG tablet Take 1 tablet (40 mg) by mouth Once per day. 30 tablet 11 024 2024 Active azelastine (Optivar) 0.05 % ophthalmic solution PLACE 1 DROP INTO THE AFFECTED EYE(S) EVERY TWELVE HOURS 6 mL Active fluticasone (Flonase) 50 MCG/ACT nasal sprayIndications: Non-seasonal allergic rhinitis, unspecified trigger INSTILL 2 SPRAYS IN EACH NOSTRIL ONCE DAILY 48 g Active lidocaine (Lidoderm) 5 % patch APPLY 1 PATCH TOPICALLY TO SKIN, LEAVE ON FOR 12 HOURS AND OFF FOR 12 HOURS DIRECTED 30 patch 2 Active cetirizine (ZyrTEC) 10 MG tabletIndications :Seasonal allergic reaction TAKE 1 TABLET BY MOUTH EVERY DAY 90 tablet Active hydroCHLOROthiazi de 12.5 MG tabletIndications :Primary hypertension Take 1 tablet (12.5 mg) by mouth Once per day. 90 tablet Active metFORMIN, OSM, (Fortamet) 500 MG 24 hr tablet Take 1 tablet (500 mg) by mouth with evening meal. Do not crush, chew, or split. 30 tablet 025 2025 Active FREESTYLE LITE test strip Use to test blood sugar daily 100 each 025 2025 Active Lancets misc Use to test blood sugar daily 100 each Active Alcohol Swabs 70 % pads Use to test blood sugar daily 100 each Active Blood Glucose Monitoring Suppl (FreeStyle Clarence Lite) w/Device kit Use to test blood sugar daily 1 kit Active azelastine (Optivar) 0.05 % ophthalmic solution PLACE 1 DROP INTO THE AFFECTED EYE(S) EVERY TWELVE HOURS 6 mL 025 Active naloxone (Narcan) 4 mg/0.1 mL nasal sprayIndications: Chronic back pain, unspecified back location, unspecified back pain laterality FOR SUSPECTED OPIOID OVERDOSE. SPRAY 0.1mL IN ONE NOSTRIL. REPEAT IN ALTERNATE NOSTRIL 2-3 MINUTES IF NEEDED. SEEK MEDICAL ATTENTION IMMEDIATELY EVEN IF PATIENT RESPONDS. 2 each 3 Active lidocaine-priloca ine (Emla) 2.5-2.5 % cream APPLY TO THE AFFECTED AREA(S) EVERY 12 HOURS NEEDED FOR MILD PAIN 30 g 1 025 Active traMADol (Ultram) 50 MG tabletIndications :Arthralgia of multiple joints TAKE 1 TABLET BY MOUTH EVERY 8 HOURS NEEDED FOR SEVERE PAIN 84 tablet 025 Active cyclobenzaprine (Flexeril) 10 MG tabletIndications :Mid back pain One tab po at bedtime prn pain of muscles, do not drive with medicaion 30 tablet 025 Active Acetaminophen 500 MG capsule Take 1 capsule (500 mg) by mouth every 8 (eight) hours if needed for moderate pain or fever. 30 capsule 025 2024 Active Diclofenac Sodium 1 % gel Apply topically tid prn pain 50 g 1 025 Active lidocaine-priloca ine (Emla) 2.5-2.5 % cream APPLY TOPICALLY TO THE AFFECTED AREA(S) EVERY TWELVE HOURS NEEDED FOR MILD PAIN 30 g 1 025 2024 Discontinued traMADol (Ultram) 50 MG tabletIndications :Arthralgia of multiple joints TAKE 1 TABLET BY MOUTH EVERY 8 HOURS NEEDED FOR SEVERE PAIN 84 tablet 025 2024 Discontinued Active Problems Problem Noted Date Diagnosed Date Dietary counseling 02/14/2025 Exercise counseling 02/14/2025 Type 2 diabetes mellitus wit h hyperglycemia, without long-term current use of insulin 02/14/2025 New onset type 2 diabetes mellitus 01/28/2025 Overview (01/28/2025): Lab Results Component Value Date HGBA1C 8.2 (H) 01/28/2025 Long-term current use of opiate analgesic 2024 Knee pain, left 08/14/2023 Assessment & Plan (08/14/2023 9:51 AM EST): L knee w cracking. No swelling, erythema, nor increase in skin temp. No L edema, no calf tenderness -continue his Tramadol -px today emla crea BID prn -XR left knee- if significant findings will refer to ortho -Nurse staff placed today knee elastic bands Mild intellectual disability 12/03/2022 Hypertension 08/18/2022 Assessment & Plan (08/14/2023 9:53 AM EST): Mildly elevated BP today, reports he took his BP meds today. Possibly reactive to pain. -Advise to f u w PCP at upcoming apt. 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 Patient allergic to aspirin? I will prescribe short course prednisone F/u with PCP Drowsy 09/13/2017 2023 Snoring 09/13/2017 2023 Chronic back pain 02/21/2017 2023 Impaired glucose tolerance 04/13/2012 0 2023 Encounters Date Type Department Care Team Description 03/28/2025 3:00 PM EDT Office Visit [facility] [address] [place] [phone] Mid back pain (Primary Dx) 03/28/2025 Travel 03/28/2025 Telephone [facility] MED[facility] [address] [place] [phone] Alex Márquez MA oct recalls 03/27/2025 Refill [facility] [address] [place] [address] Izabella Nesbitt NP Arthralgia of multiple joints 03/21/2025 Refill [facility] [address] [place] [address] Korey Ocamop MD 02/26/2025 Refill [facility] [address] [place] [address] Korey Ocampo MD Arthralgia of multiple joints; Chronic back pain, unspecified back location, unspecified back pain laterality 02/20/2025 Refill [facility] [address] [place] [address] Korey Ocampo MD 02/15/2025 2:45 PM EDT Office Visit [facility] [address] [place] [phone] Michela Jimenez, [place] Type 2 diabetes mellitus with hyperglycemia, without long-term current use of insulin ([facility]) (Primary Dx); Dietary counseling; Exercise counseling; Primary hypertension 02/15/2025 Travel 02/14/2025 Telephone [facility] [address] [place] [phone] Micaela Cao MA Chart Prep 02/14/2025 Telephone [facility] [address] [place] [phone] Korey Ocampo MD 02/14/2025 Refill [facility] [address] [place] [phone] Korey Ocampo MD 01/28/2025 Refill [facility] [address] [place] [address] Korey Ocampo MD Arthralgia of multiple joints 01/28/2025 Results Follow-Up [facility] [address] [place] [phone] Korey Ocampo MD Hemoglobin A1c 01/25/2025 11:15 AM EDT Office Visit [facility] [address] [place] [phone] Korey Ocampo MD Primary hypertension (Primary Dx); Hyperglycemia 01/25/2025 Telephone [facility] [address] [place] [phone] Alex Márquez MA Lab Orders 01/25/2025 Travel 01/24/[address] [phone] Pura Sampson MA CHARTPREP 01/20/2025 Refill [facility] [address] [place] [phone] Korey Ocampo MD Seasonal allergic reaction 01/03/2025 Refill [facility] [address] [place] [address] Korey Ocampo MD 01/01/2025 11:30 AM EDT Clinical Support [address] [phone] Katharina Matt RN Long-term current use of opiate analgesic (Primary Dx) 01/01/[address] [address] Katharina Matt RN BPI Scoring 01/01/2025 Travel 12/26/2024 Refill [facility] [address] [place] [address] Korey Ocampo MD Arthralgia of multiple joints from Last 3 Months Immunizations Immunization Administration Dates Next Due Influenza, IIV3, injectable 05/15/2007 Moderna Covid-19 Vaccine 12+ 12/31/2020,12/03/19 21 TD (adult), 2 Lf tetanus tox oid, preservative free, adsorbed 05/27/2006 Tdap 05/03/2018 Social History Tobacco Use Types Packs/Day Years [...] the past 12 months, has t he [employer], gas, oil or water company threatened to shut off services in your home? No 09/14/2023 Depression Answer Date Recorded Patient Health Questionnaire-2 Score 0 09/14/2023 Sex and Gender Information Value Date Recorded Sex Assigned at Male 05/31/2022 10:14 AM EDT Legal Sex Male 10:14 AM EDT Gender Identity Male 05/31/2022 10:14 AM EDT Sexual Orientation Choose not to disclose 2021 10:14 AM EDT Last Filed Vital Signs Vital Sign Reading Time Taken Comments Blood Pressure 148/84 03/28/2025 3:12 PM EDT Pulse 75 03/28/2025 3:12 PM EDT Temperature 36.8 C (98.2 F) 03/28/2025 3:12 PM EDT Respiratory Rate 18 03/28/2025 3:12 PM EDT Oxygen Saturation 97% 03/28/2025 3:12 PM EDT Inhaled Oxygen Concentration - - Weight 82.6 kg (182 lb) 03/28/2025 3:12 PM EDT Height 175.3 cm (5' 9 ) 02/15/2025 2:53 PM EDT Body Mass Index 26.88 02/15/2025 2:53 PM EDT Plan of Treatment Upcoming Encounters Date Type Department Care Team (Late st Contact Info) Description 04/03/2025 11:30 AM EDT Clinical Support [facility] [address] [place] [phone] Katharina Matt, RN 06/17/2025 3:15 PM EST Office Visit [facility] [address] [place] [phone] Name, MD Korey [address] [place] [phone] Health Maintenance Due Date Last Done Comments CT Colonography 1959 Colonoscopy 1959 Colorectal Cancer Screening 1959 FIT DNA/Cologuard 1959 FIT 1959 FOBT 1959 Sigmoidoscopy 1959 Diabetes: Foot Exam 12/28/1969 Eye Exam 12/28/1969 Hepatitis C Screening 12/28/1977 Diabetes: Urine Protein Screening 12/28/1978 Pneumococcal Vaccine: 50+ Years (1 of 2 - PCV) 12/28/1978 Zoster Vaccines (1 of 2) 12/28/2009 COVID-19 Vaccine (3 - 2023-2 5 season) 2024 12/31/2020, 12/02/2020 Depression Screening 09/14/2024 09/14/2023, 09/14/2023 SDOH Screening 09/14/2024 09/14/2023 Influenza Vaccine (#1) 2025 05/15/2007 Diabetes: Hemoglobin A1C 04/30/2025 01/28/2025 Alcohol/Substance Use Screening 06/05/2025 06/05/2024 Lipid Panel 06/07/2025 06/07/2024, 2023, 12/09/2022 Tobacco Screening 02/15/2026 02/15/2025 DTaP/Tdap/Td Vaccines (2 - T d or Tdap) 05/03/2028 05/03/2018, 05/27/2006 RSV Patients and Patients Aged 60 years or older (1 - 1-dose 75+ series) 12/28/2034 HIB Vaccines Aged Out No longer eligi ble based on patient's age to complete this topic HPV Vaccines Aged Out No longer eligi ble based on patient's age to complete this topic Hepatitis A Vaccines Aged Out No long er eligible based on patient's age to complete this topic Hepatitis B Vaccines Aged Out No long er eligible based on patient's age to complete this topic IPV Vaccines Aged Out No longer eligi ble based on patient's age to complete this topic Meningococcal B Vaccine Aged Out No l onger eligible based on patient's age to complete this topic Meningococcal Vaccine Aged Out No alycia jesse eligible based on patient's age to complete this topic RSV under 20 months Aged Out No longe r eligible based on patient's age to complete this topic Rotavirus Vaccines Aged Out No longer eligible based on patient's age to complete this topic Procedures Procedure Name Priority Date/Time Associated Diagnosis Comments HEMOGLOBIN A1C Routine 01/28/2025 9:31 AM EDT Hyperglycemia POCT KAMILAH-14 URINE DRUG SCREEN Routine 01/01/2025 11:10 AM EDT Long-term current use of opiate analgesic LIPID PANEL, STANDARD Routine 06/07/2024 9:54 AM EST Hypertension, unspecified type On statin therapy from Last 3 Months or Most Recently Relevant to Health Maintenance Results * (ABNORMAL) Hemoglobin A1c (01/28/2025 9:31 AM EDT) Hemoglobin A1c 8.2(H) <6.0 % [facility] Comment:Hemoglobin A1C Refer ence Range Adults: 4.8 - 6.0 % Non diabetic: < 6.0 % Goal: < 7.0 %Additional Action Suggested: > 8.0 %Note: Hemoglobin A1c results are invalid for patients with abnormal amounts of HbF. Blood transfusions may impact the HbA1c concentration in the patient sample. Estimated Average Glucose 189 mg/dL [facility] Comment:eAG = Estimated ave rage glucose which is %A1C expressed asaverage glucose, using the formula of the G1G-[id number] Glucose study (ADAG), Diabetes Care, Vol.31,#8,Mar. 2007 Blood Venous blood specimen / Unknown 01/28/2025 9:31 AM EDT 01/28/2025 10:59 AM EDT us Korey Ocampo MD LAB BLOOD ORDERABLES Final Resul t [facility] [address] [place] [phone] * POCT KAMILAH-14 Urine Drug Screen (01/01/2025 11:10 AM EDT) THC Negative Cocaine Screen, Urine Negative Opiate Screen, Urine Negative Methamphetamine Screen Urine Negative Amphetamine Screen, Urine Negative Benzodiazepines Screen, Urine Negative Barbiturate Screen, Urine Negative Methadone Screen, Urine Negative Buprenophine Screen, Urine Negative TCA, Urine Negative MDMA Urine Negative ng/mL Oxycodone Screen, Urine Negative Phencyclidine (PCP), Urine Negative Propoxyphene, Urine Negative Fentanyl, Urine Negative Urine Urine specimen obtained by clean catch procedure / Unknown 01/01/2025 11:10 AM EDT Katharina Real RN - 01/01/2025 11:10 AM EDT UTOX cup Lot#[id number] Exp. 05/31/26 Internal Pass Control us Korey Ocampo MD POINT OF CARE TEST ENTER/EDIT OR DERABLES Final Result * (ABNORMAL) Lipid Panel, Standard (06/07/2024 9:54 AM EST) Triglycerides 174(H) <150 mg/dL [facility] Comment:Desirable Triglyceri de: less than 150 mg/dLBorderline High Triglyceride 150-199 mg/dLHigh Triglyceride: 200-499 mg/dLVery High Triglyceride: greater than or equal to 5OO mg/dL Cholesterol 227(H) <200 mg/dL [facility] Comment:Desirable Cholestero l: less than 200 mg/dLBorderline High Cholesterol: 200-239 mg/dLHigh Cholesterol: greater than 239 mg/dL LDL Cholesterol Calculated 160(H) <100 mg/dL [facility] Comment:Desirable LDL: less than 100 mg/dLNear Optimal/Above Optimal LDL: 110- 129 mg/dLBorderline High LDL: 130-159 mg/dLHigh LDL: 160-189 mg/dLVery High LDL: greater than or equal to 190 mg/dL HDL Cholesterol 33(L) >40 mg/dL [facility] Comment:Desirable HDL: great er than 40 mg/dL Note: This HDL assay may give artificially low results in patients with liver disease. Blood Venous blood specimen / Unknown 06/07/2024 9:54 AM EST 06/07/2024 11:10 AM EST us Korey Name LAB BLOOD ORDERABLES Final Resul t [facility] [address] [place] [address] [phone] from Last 3 Months or Most Recently Relevant to Health Maintenance Insurance [facility] STANDARD MEDICARE [facility] CARE HOME OPTIONS (HMO D-SNP) Care Teams Director Advertising Relationship Specialty Start Date End Date Name, MD Korey [address] [place] [phone] PCP - General Family Medicine 11/05/15
--- OUTSIDE RECORDS SUMMARY | 2025-03-28 16:02 | XMS_ITS | Encounter Summary ---
Author Organization [employer] Address [address] [facility] [address] [place] [address] Care Team Providers Care Senior Support Analyst Name Role Phone Name, Korey MAIN Primary Care Provider [phone] Reason for Visit * Reason Comments Med Refill Encounter Details Date Type Department Care Team ([facility] st Contact Info) Description 03/27/2025 Refill [facility] [address] [place] [address] Izabella Nesbitt, SAL [address] [place] [address] Arthralgia of multiple joints Social History Tobacco [...] Description 04/03/2025 11:30 AM EDT Clinical Support [address] [address] Katharina Matt RN 06/17/2025 3:15 PM EST Office Visit [facility] [address] [place] [phone] Name, MD Korey [address] [place] [phone] documented as of this encounter Visit Diagnoses Diagnosis Arthralgia of multiple joints Pain in joint, multiple sites documented in this encounter Additional Health Concerns Assessment Noted Time PHQ-9 Depression Total Score: 0 09/14/19 24 2:31 PM EST documented as of this encounter Care Teams Senior Support Analyst Relationship Specialty Start Date End Date Name, MD Korey [address] [place] [phone] PCP - General Family Medicine 11/05/15 documented as of this encounter
== END 2025-03-28 15:37 | disposition home or self-care (01) ==
LOC: HO.HHCX 15:36
PROVIDERS: Visit Provider Family Medicine
DX: M54.9 Dorsalgia, unspecified (principal)
CPT/HCPCS: 72070

== ENCOUNTER → 2025-03-28 15:37 | Outpatient (BNV) | payer MEDICAID, SELFPAY | PROVIDERS: Visit Provider Radiology Diagnostic Radiology | DX: M54.6 Pain in thoracic spine (principal) | CPT/HCPCS: 72070 ==

== ENCOUNTER 2025-04-18 10:28 | Outpatient (REF) | payer MEDICAID, SELFPAY ==
--- OUTSIDE RECORDS SUMMARY | 2025-04-15 10:40 | XMS_ITS | Encounter Summary ---
Author Organization [employer] Address [address] [place] [address] Care Team Providers Care Registry Np Name Role Phone Name, Korey MAIN Primary Care Provider [phone] Reason for Visit * Reason Comments Diabetes Encounter Details Date Type Department Care Team ([facility] st Contact Info) Description 04/15/2025 10:40 AM EDT Office Visit [facility] [place] [address] [place], [place] [id number] Name, MD Korey [address] [place] [address] Type 2 diabetes mellitus with hyperglycemia, without long-term current use of insulin ([facility]) (Primary Dx) Social History Tobacco Use Types [...] Date Recorded Patient Health Questionnaire-9 Score 0 04/04/2025 Patient Health Questionnaire-9 Score 0 04/04/2025 Last PHQ-9: Questionnaire Data Not on file 0 04/04/2025 Housing Stability Answer Date Recorded What is your housing situation today? I have ronald ramírez 04/04/[address] you li ve. Do you have problems with any of the following? None of the above 04/04/2025 Food Insecurity Answer Date Recorded Within the past 12 months, y ou worried that your food would run out before you got money to buy more: Never True 04/04/2025 Within the past 12 months,th e food you bought just didn't last and you didn't have enough money to get more: Never True 10/2024 Transportation Answer Date Recorded In the past 12 months, has l ack of transportation kept you from medical appts, meetings, work or from getting things needed for daily living? No 04/04/2025 Utilities Answer Date Recorded In the past 12 months, has t he electric, gas, oil or water company threatened to shut off services in your home? No 04/04/2025 Depression Answer Date Recorded Patient Health Questionnaire-2 Score 0 04/04/2025 Internet Access Answer Date Recorded Internet Access Q1 No 04/04/2025 Internet Access Q2 I do not want or need it 10/2024 Sex and Gender Information Value Date Recorded Sex Assigned at Male 05/31/2022 10:14 AM EDT Legal Sex Male 10:14 AM EDT Gender Identity Male 05/31/2022 10:14 AM EDT Sexual Orientation Choose not to disclose 2021 10:14 AM EDT documented as of this encounter Last Filed Vital Signs Vital Sign Reading Time Taken Comments Blood Pressure 160/87 04/15/2025 11:05 AM EDT Pulse 69 04/15/2025 11:05 AM EDT Temperature 36.3 C (97.4 F) 04/15/2025 11:05 AM EDT Respiratory Rate 12 04/15/2025 11:05 AM EDT Oxygen Saturation 94% 04/15/2025 11:05 AM EDT Inhaled Oxygen Concentration - - Weight 78 kg (172 lb) 04/15/2025 11:05 AM EDT Height 167.6 cm (5' 6 ) 04/15/2025 11:05 AM EDT Body Mass Index 27.76 04/15/2025 11:05 AM EDT documented in this encounter Progress Notes * Korey Ocampo MD - 04/15/2025 10:40 AM EDT Subjective Patient ID: Simon Knight is a 64 y.o. male who presents for Diabetes. Patient came today to walk-in because of hyperglycemia. He has type 2 diabetes diagnosed in [place] of this year. His hemoglobin A1c was 8 at the time of diagnosis. He has personal history of mild intellectual disability. The patient was started on treatment with metformin that he has not been using regularly. Unfortunately he continues to drink juice daily. He denies any other symptoms. He has upcoming appointment with [facility] For now he refuses to use insulin. Review of Systems Constitutional: Negative for chills, fatigue and fever. HENT: Negative for sore throat. Respiratory: Negative for cough, chest tightness and shortness of breath. Cardiovascular: Negative for chest pain, palpitations and leg swelling. Gastrointestinal: Negative for abdominal pain and blood in stool. Objective Vitals: 04/15/25 1105 BP: (!) 160/87 BP Location: Left arm Patient Position: Sitting BP Cuff Size: Adult Pulse: 69 Resp: 12 Temp: 97.4 ??F (36.3 ??C) TempSrc: Oral SpO2: 94% Weight: 172 lb (78 kg) Height: 5' 6 (1.676 m) Physical Exam Constitutional: General: He is not in acute distress. Appearance: He is not toxic-appearing. Cardiovascular: Rate and Rhythm: Normal rate and regular rhythm. Pulmonary: Effort: Pulmonary effort is normal. No respiratory distress. Lab Results Component Value Date HGBA1C 13.2 (A) 04/12/2025 HGBA1C 8.2 (H) 01/28/2025 Assessment/Plan Diagnoses and all orders for this visit: Type 2 diabetes mellitus with hyperglycemia, without long-term current use of insulin ([facility]) Comments: Patient with uncontrolled diabetes secondary to medication and diet noncompliance. Today I gave the patient simple instructions. I specifically recommended to stop drinking any type of juice or soda. I recommended to drink only water or black coffee. I recommended to stop adding sugar to any meal or eating any type of dessert. I recommended the patient to walk after meals. I suggested starting insulin and a CGM but for now he refuses. He also refuses to go to the hospital for IV fluids and IV insulin but frankly I do not feel that he needs that right now. I will start the patient on combination sulfonylurea/metformin twice a day with meals. I recommend the patient to eat 3 times a day and a bedtime snack. I recommended to check his blood sugars at home at least twice a day. I reminded the patient of his upcoming appointment with [facility] Orders: - POCT Glucose - POCT Urinalysis Other orders - glipiZIDE-metFORMIN (Metaglip) 2.5-500 MG tablet; Take 1 tablet by mouth before breakfast and before evening meal. Future Appointments Date Time Provider Department Center 04/18/2025 10:00 AM Melvi Lindsay PharmD [facility] 06/17/2025 3:15 PM Korey Ocampo MD [facility] 07/03/2025 11:30 AM Katharina Matt RN [facility] documented in this encounter Plan of Treatment Upcoming Encounters Date Type Department Care Team (Late st Contact Info) Description 04/19/2025 1:00 PM EDT Medication Management [address] [address] Melvi Lindsay PharmD [address] [place] [id number] 05/15/2025 2:00 PM EDT Medication Management [address] [address] Melvi Lindsay PharmD [address] [place] [id number] 06/17/2025 3:15 PM EST Office Visit [address] [address] Korey Ocampo MD [address] [place] [id number] 07/03/2025 11:30 AM EST Clinical Support [address] [id number] Katharina Matt, GABE documented as of this encounter Procedures Procedure Name Priority Date/Time Associated Diagnosis Comments POCT GLUCOSE Routine 04/15/2025 11:06 AM EDT Type 2 diabetes mellitus with hyperglycemia, without long-term current use of insulin ([facility]) POCT URINALYSIS DIPSTICK Routine 04/15/2025 11:06 AM EDT Type 2 diabetes mellitus with hyperglycemia, without long-term current use of insulin ([facility]) documented in this encounter Results * (ABNORMAL) POCT Urinalysis (04/15/2025 11:06 AM EDT) Color, UA Yellow Clarity, UA Clear Glucose, UA 3+ 500+++ Comment:500 Bilirubin, UA Negative Ketones, UA Positive Comment:Trace Spec Grav, UA 1.010 Blood, UA Negative Negative, None Detected pH, UA 6.0 Protein, UA Negative Urobilinogen, UA 0.2 Leukocytes, UA Negative Negative, Rare, Trace Nitrite, UA Negative Negative, None Detected Appearance, UA clear Urine 04/15/2025 11:0 6 AM EDT us Korey Ocampo MD POINT OF CARE TEST ENTER/EDIT OR DERABLES Final Result * (ABNORMAL) POCT Glucose (04/15/2025 11:06 AM EDT) Glucose Blood, POC 500(A) 60 - 200 mg/dL Comment:[facility] Blood Capillary blood specimen / Unknown 04/15/2025 11:06 AM EDT us Korey Ocampo MD POINT OF CARE TEST ENTER/EDIT OR DERABLES Final Result documented in this encounter Visit Diagnoses Diagnosis Type 2 diabetes mellitus with hyperglycemia, without long-term current use of insulin ([facility])- Primary documented in this encounter Additional Health Concerns Assessment Noted Time PHQ-9 Depression Total Score: 0 04/04/20 25 11:37 AM EDT documented as of this encounter Care Teams Registry Np Relationship Specialty Start Date End Date Name, MD Korey [address] [place] [id number] PCP - General Family Medicine 11/05/15 documented as of this encounter
--- OUTSIDE RECORDS SUMMARY | 2025-04-18 12:28 | XMS_ITS | Clinical Summary ---
Author Organization [employer] Address [address] [place] [address] 7[address] [place] [address] Care Team Providers Care Land Reclamation Specialist Name Role Phone Name, Korey MAIN Primary Care Provider [phone] Allergies Active Allergy Reactions Criticality Noted Date [...] 023 Active sodium chloride (Deep Sea Nasal [place]) 0.65 % nasal sprayIndications: Acute rhinosinusitis USE 1-2 SPRAYS IN EACH NOSTRIL EVERY 2 TO 3 HOURS NEEDED FOR NASAL CONGESTION 44 mL 1 024 Active amLODIPine (Norvasc) 10 MG tablet Take 1 tablet (10 mg) by mouth Once per day. 30 tablet 024 2024 Active atorvastatin (Lipitor) 40 MG tablet Take 1 tablet (40 mg) by mouth Once per day. 30 tablet 11 024 2024 Active azelastine (Optivar) 0.05 % ophthalmic solution PLACE 1 DROP INTO THE AFFECTED EYE(S) EVERY TWELVE HOURS 6 mL 1 025 Active fluticasone (Flonase) 50 MCG/ACT nasal sprayIndications: Non-seasonal allergic rhinitis, unspecified trigger INSTILL 2 SPRAYS IN EACH NOSTRIL ONCE DAILY 48 g 025 Active lidocaine (Lidoderm) 5 % patch APPLY 1 PATCH TOPICALLY TO SKIN, LEAVE ON FOR 12 HOURS AND OFF FOR 12 HOURS DIRECTED 30 patch 2 025 Active cetirizine (ZyrTEC) 10 MG tabletIndications :Seasonal allergic reaction TAKE 1 TABLET BY MOUTH EVERY DAY 90 tablet 1 025 Active hydroCHLOROthiazi de 12.5 MG tabletIndications :Primary hypertension Take 1 tablet (12.5 mg) by mouth Once per day. 90 tablet 025 Active FREESTYLE LITE test strip Use to test blood sugar daily 100 each 025 2025 Active Lancets misc Use to test blood sugar daily 100 each 025 Active Alcohol Swabs 70 % pads Use to test blood sugar daily 100 each 025 Active Blood Glucose Monitoring Suppl (FreeStyle [place] Lite) w/Device kit Use to test blood [...] HOURS NEEDED FOR SEVERE PAIN 84 tablet Active cyclobenzaprine (Flexeril) 10 MG tabletIndications :Mid back pain One tab po at bedtime prn pain of muscles, do not drive with medicaion 30 tablet Active Acetaminophen 500 MG capsule Take 1 capsule (500 mg) by mouth every 8 (eight) hours if needed for moderate pain or fever. 30 capsule 025 2024 Active Diclofenac Sodium 1 % gel Apply topically tid prn pain 50 g 1 Active glipiZIDE-metFORM IN (Metaglip) 2.5-500 MG tablet Take 1 tablet by mouth before breakfast and before evening meal. 60 tablet 025 2025 Active busPIRone (Buspar) 5 MG tablet Take 5 mg by mouth 2 times daily. Active Tirzepatide (Mounjaro) 2.5 MG/0.5ML solution auto-injectorIndi cations:Type 2 diabetes mellitus with hyperglycemia, without long-term current use of insulin ([facility]) Inject 2.5 mg under the skin 1 (one) time per week. 2 mL Active lidocaine-priloca ine (Emla) 2.5-2.5 % cream APPLY TOPICALLY TO THE AFFECTED AREA(S) EVERY TWELVE HOURS NEEDED FOR MILD PAIN 30 g 1 025 2024 Discontinued metFORMIN, OSM, (Fortamet) 500 MG 24 hr tablet Take 1 tablet (500 mg) by mouth with evening meal. Do not crush, chew, or split. 30 tablet 025 2024 Discontinued(R eorder (will not trigger notification to Pharmacy)) traMADol (Ultram) 50 MG tabletIndications :Arthralgia of multiple joints TAKE 1 TABLET BY MOUTH EVERY 8 HOURS NEEDED FOR SEVERE PAIN 84 tablet 025 2024 Discontinued metFORMIN, OSM, (Fortamet) 500 MG 24 hr tabletIndications :Type 2 diabetes mellitus with hyperglycemia, without long-term current use of insulin ([facility]) Take 1 tablet (500 mg) by mouth with evening meal. Do not crush, chew, or split. 30 tablet 11 025 2024 Discontinued(T herapy completed) Hospital, Clinic, or Other Facility Administered Medication Ordered Dose Route Frequency Start Date End Date Status Insulin Lispro solution 10 UnitsIndications:Type 2 diabetes mellitus with hyperglycemia, without long-term current use of insulin ([facility]) 10 Units IJ Once 04/12/2025 04/12/2025 Ended Active Problems Problem Noted Date Diagnosed Date [...] his medication every day F/u with PCP Illiteracy 02/21/2017 Atopic dermatitis 06/18/2016 Recurrent major [...] prescribe short course prednisone F/u with PCP Prediabetes 07/13/2022 04/15/2025 Drowsy 09/13/2017 2023 Snoring 09/13/2017 2023 Chronic back pain 02/21/2017 2023 Impaired glucose tolerance 04/13/2012 0 2023 Encounters Date Type Department Care Team Description 04/18/2025 Travel 04/16/2025 Telephone [facility] [address] [place] [address] Melvi Lindsay, Naima 04/15/2025 10:40 AM EDT Office Visit [facility] [address] [place] [address] Name, MD Korey Type 2 diabetes mellitus with hyperglycemia, without long-term current use of insulin ([facility]) (Primary Dx) 04/15/2025 Travel 04/12/2025 11:00 AM EDT Office Visit [facility] WALK-IN [address] [address] Whit Degroot MD Type 2 diabetes mellitus with hyperglycemia, without long-term current use of insulin ([facility]) 04/12/2025 10:00 AM EDT Clinical Support [address] [address] Jodie Hamilton, GABE Type 2 diabetes mellitus with hyperglycemia, without long-term current use of insulin (CMS/HCC) 04/12/2025 Travel 04/08/[address] [address] Korey Ocampo MD Referral 04/04/2025 11:30 AM EDT Office Visit [address] [address] Korey Ocampo MD Type 2 diabetes mellitus with hyperglycemia, without long-term current use of insulin ([facility]) (Primary Dx) 04/04/2025 Travel 04/03/2025 11:30 AM EDT Clinical Support [address] [address] Katharina Matt, GABE Long-term current use of opiate analgesic (Primary Dx) 04/03/2025 Travel 03/28/2025 3:00 PM EDT [facility] [address] [address] Julia Cardona MD Mid back pain (Primary Dx) 03/28/2025 Travel 03/28/[address] [address] Alex Márquez MA oct recalls 03/27/2025 Refill [facility] [address] [place] [address] Izabella Nesbitt NP Arthralgia of multiple joints 03/21/2025 Refill [facility] [address] [place] [address] Korey Ocampo MD 02/26/2025 Refill [facility] [address] [place], [place] [phone] Korey Ocampo MD Arthralgia of multiple joints; Chronic back pain, unspecified back location, unspecified back pain laterality 02/20/2025 Refill [facility] PEDS [address] [place] [address] Korey Ocampo MD 02/15/2025 2:45 PM EDT Office Visit [facility] MED[facility] [address] [place] [address] Michela Jimenez FNP Type 2 diabetes mellitus with hyperglycemia, without long-term current use of insulin ([facility]) (Primary Dx); Dietary counseling; Exercise counseling; Primary hypertension 02/15/2025 Travel 02/14/2025 Telephone [facility] [address] [place] [address] Micaela Cao MA Chart Prep 02/14/2025 Telephone [facility] [address] [place] [address] Korey Ocampo MD 02/14/2025 Refill [facility] [address] [place] [address] Korey Ocampo MD 01/28/2025 Refill [facility] PED[facility] [address] [place] [address] Korey Ocampo MD Arthralgia of multiple joints 01/28/2025 Results Follow-Up [facility] [address] [place] [address] Korey Ocampo MD Hemoglobin A1c 01/25/2025 11:15 AM EDT Office Visit [facility] [address] [place] [address] Korey Ocampo MD Primary hypertension (Primary Dx); Hyperglycemia 01/25/2025 Telephone [facility] [address] [place] [address] Alex Márquez MA Lab Orders 01/25/2025 Travel 01/24/2025 Telephone [facility] [address] [place] [address] Pura Sampson MA CHARTPREP 01/20/2025 Refill [facility] [address] [place] [address] Korey Ocampo MD Seasonal allergic reaction from Last 3 Months Immunizations Immunization Administration [...] Sign Reading Time Taken Comments Blood Pressure 130/70 04/18/2025 10:21 AM EDT Pulse 69 04/15/2025 11:05 AM EDT Temperature 36.3 C (97.4 F) 04/15/2025 11:05 AM EDT Respiratory Rate 12 04/15/2025 11:05 AM EDT Oxygen Saturation 94% 04/15/2025 11:05 AM EDT Inhaled Oxygen Concentration - - Weight 78 kg (172 lb) 04/15/2025 11:05 AM EDT Height 167.6 cm (5' 6 ) 04/15/2025 11:05 AM EDT Body Mass Index 27.76 04/15/2025 11:05 AM EDT Plan of Treatment Upcoming Encounters Date Type Department Care Team (Late st Contact Info) Description 04/19/2025 1:00 PM EDT Medication Management [address] [address] PuiaMelvi, PharmD [address] [place] [address] 05/15/2025 2:00 PM EDT Medication Management [address] [address] PuiaKinMelvi, PharmD [address] [place] [address] 06/17/2025 3:15 PM EST Office Visit [address] [address] Name, MD Korey [address] [place] [address] 07/03/2025 11:30 AM EST Clinical Support [address] [address] Katharina Matt, RN Health Maintenance Due Date Last Done Comments CT Colonography 1960 Colonoscopy 1960 Colorectal Cancer Screening 1960 FIT DNA/Cologuard 1959 FIT 1959 FOBT 1960 Sigmoidoscopy 1959 Diabetes: Foot Exam 12/28/1969 Eye Exam 12/28/1969 Hepatitis C Screening 12/28/1977 Diabetes: Urine Protein Screening 12/28/1978 Pneumococcal Vaccine: 50+ Years (1 of 2 - PCV) 12/28/1978 Zoster Vaccines (1 of 2) 12/28/2009 COVID-19 Vaccine (3 - 2024-2 6 season) 2025 12/31/2020, 12/02/2020 Influenza Vaccine (#1) 2025 05/15/2007 Alcohol/Substance Use Screening 06/05/2025 06/05/2024 Lipid Panel 06/07/2025 06/07/2024, 2023, 12/09/2022 Diabetes: Hemoglobin A1C 07/12/2025 025, 01/28/2025 Depression Screening 04/04/2026 04/04/2025, 04/04/2025 SDOH Screening 04/04/2026 04/04/2025 Tobacco Screening 04/15/2026 04/15/2025 DTaP/Tdap/Td Vaccines (2 - T d or [...] Name Priority Date/Time Associated Diagnosis Comments POCT URINALYSIS DIPSTICK Routine 04/15/2025 11:06 AM EDT Type 2 diabetes mellitus with hyperglycemia, without long-term current use of insulin ([facility]) POCT GLUCOSE Routine 04/15/2025 11:06 AM EDT Type 2 diabetes mellitus with hyperglycemia, without long-term current use of insulin ([facility]) POCT URINALYSIS DIPSTICK Routine 04/12/2025 11:42 AM EDT Type 2 diabetes mellitus with hyperglycemia, without long-term current use of insulin ([facility]) POCT GLYCATED HEMOGLOBIN, TOTAL Routine 04/12/2025 11:30 AM EDT Type 2 diabetes mellitus with hyperglycemia, without long-term current use of insulin ([facility]) POCT GLUCOSE Routine 04/12/2025 11:30 AM EDT Type 2 diabetes mellitus with hyperglycemia, without long-term current use of insulin ([facility]) POCT GLUCOSE Routine 04/12/2025 10:20 AM EDT Type 2 diabetes mellitus with hyperglycemia, without long-term current use of insulin ([facility]) POCT GLUCOSE Routine 04/04/2025 11:42 AM EDT Type 2 diabetes mellitus with hyperglycemia, without long-term current use of insulin ([facility]) POCT KAMILAH-14 URINE DRUG SCREEN Routine 04/03/2025 11:00 AM EDT Long-term current use of opiate analgesic XR THORACIC SPINE 2 VIEWS Routine 03/28/2025 3:07 PM EDT Mid back pain HEMOGLOBIN A1C Routine 01/28/2025 9:31 AM EDT Hyperglycemia LIPID PANEL, STANDARD Routine 06/07/2024 9:54 AM EST Hypertension, unspecified type On statin therapy from Last 3 Months or Most Recently Relevant to Health Maintenance Results * (ABNORMAL) POCT Glucose (04/15/2025 11:06 AM EDT) Only the most recent of4 resultswithin the time period is included. Glucose Blood, POC 500(A) 60 - 200 mg/dL Comment:[facility] Blood Capillary blood specimen / Unknown 04/15/2025 11:06 AM EDT us Korey Ocampo MD POINT OF CARE TEST ENTER/EDIT OR DERABLES Final Result * (ABNORMAL) POCT Urinalysis (04/15/2025 11:06 AM EDT) Only the most recent of2 resultswithin the time period is included. Color, UA Yellow Clarity, UA Clear Glucose, [...] OR DERABLES Final Result * (ABNORMAL) POCT A1c (04/12/2025 11:30 AM EDT) Hemoglobin A1C 13.2(A) 4.0 - 5.7 % Blood 04/12/2025 11:3 0 AM EDT us Whit Degroot MD POINT OF CARE TEST ENTER/EDIT ORDERABLES Final Result * POCT KAMILAH-14 Urine Drug Screen (04/03/2025 11:00 AM EDT) THC Negative Negative Cocaine Screen, Urine Negative Negative Opiate Screen, Urine Negative Negative Methamphetamine Screen Urine Negative Negative Amphetamine Screen, Urine Negative Negative Benzodiazepines Screen, Urine Negative Negative Barbiturate Screen, Urine Negative Negative Methadone Screen, Urine Negative Negative Buprenophine Screen, Urine Negative Negative TCA, Urine Positive Negative MDMA Urine Negative Negative ng/mL Oxycodone Screen, Urine Negative Negative Phencyclidine (PCP), Urine Negative Negative Propoxyphene, Urine Negative Negative Fentanyl, Urine Negative Negative Urine Urine specimen obtained by clean catch procedure / Unknown 04/03/2025 11:00 AM EDT Narrative Katharina Matt RN - 04/03/2025 11:00 AM EDT UTOX cup Lot#[id number] Exp. 05/07/26 Internal Pass Control us Korey Ocampo MD POINT OF CARE TEST ENTER/EDIT OR DERABLES Final Result * XR Thoracic Spine 2 Views (03/28/2025 3:07 PM EDT) Anatomical Region Laterality Modality Spine, T-spine Radiographic Ayla ging 03/28/2025 3:07 PM EDT Narrative 03/28/2025 4:54 [place] [address] XRay Report Signed Patient: Simon Knight MR#: [id number] : 1960 Acct:[id number] Age/Sex: 64 / M ADM Date: 03/28/25 Loc: .HHCX Attending Dr: Julia Cardona MD Ordering Physician: Julia Cardona MD Date of Service: 03/28/25 Procedure(s): XR thoracic spine 2V Accession Number(s): [id number] cc: Julia Cardona MD EXAMINATION: XR THORACIC SPINE CLINICAL INFORMATION: PAIN COMPARISON: None available. TECHNIQUE: 3 views of the thoracic spine were obtained. FINDINGS: There is no significant scoliosis. There is a normal thoracic kyphosis. There is normal alignment without subluxation. There is no fracture, compression deformity, or suspicious bone lesion. There is normal facet alignment. There is mild multilevel disc degeneration present. No soft tissue abnormalities. XR/XR thoracic spine 2V IMPRESSION: 1. No acute findings of the thoracic spine. Mild multilevel disc degeneration. Electronically signed by: Tony Bradley MD 03/28/2025 04:51 PM EDT RP Dictated By: Tony Bradley MD Signed By: <Electronically signed by Tony Bradley MD in OV> 03/28/251650 DD/ 1507 TD/TT: 03/28/25 1520 Mud Mixer: Procedure Note Donotuseinterpreter, Image - 03/28/[address] [address] XRay Report Signed Patient: Simon Knihgt AMR#: [id number] : 1960Acct:[id number] Age/Sex: 64 / MADM Date: 03/28/25 Loc: HO.HHCX Attending Dr: Julia Cardona MD Ordering Physician: Julia Cardona MD Date of Service: 03/28/25 Procedure(s): XR thoracic spine 2V Accession Number(s): [id number] cc: Julia Cardona MD EXAMINATION: XR THORACIC SPINE CLINICAL INFORMATION: PAIN COMPARISON: None available. TECHNIQUE: 3 views of the thoracic spine were obtained. FINDINGS: There is no significant scoliosis. There is a normal thoracic kyphosis. There is normal alignment without subluxation. There is no fracture, compression deformity, or suspicious bone lesion. There is normal facet alignment. There is mild multilevel disc degeneration present. No soft tissue abnormalities. XR/XR thoracic spine 2V IMPRESSION: 1. No acute findings of the thoracic spine. Mild multilevel disc degeneration. Electronically signed by: Tony Bradley MD 03/28/2025 04:51 PM EDT RP Dictated By: Tony Bradley MD Signed By: <Electronically signed by Tony Bradley MD in OV> 03/28/251650 DD/ 1507 TD/TT: 03/28/25 1520 Mud Mixer: Julia Cardona MD IMG XR PROCEDURES Final Re sult * (ABNORMAL) Hemoglobin A1c (01/28/2025 9:31 AM EDT) Hemoglobin A1c 8.2(H) <6.0 % [facility] Comment:Hemoglobin A1C Refer ence Range Adults: 4.8 - 6.0 % Non diabetic: < 6.0 % Goal: < 7.0 %Additional Action Suggested: > 8.0 %Note: Hemoglobin A1c results are invalid for patients with abnormal amounts of HbF. Blood transfusions may impact the HbA1c concentration in the patient sample. Estimated Average Glucose 189 mg/dL [facility] Comment:eAG = Estimated ave rage glucose which is %A1C expressed asaverage glucose, using the formula of the S2Q-[id number] Glucose study (ADAG), Diabetes Care, Vol.31,#8,Mar. 2007 Blood Venous blood specimen / Unknown 01/28/2025 9:31 AM EDT 01/28/2025 10:59 AM EDT us Korey Name LAB BLOOD ORDERABLES Final Resul t [facility] [address] [place] [phone] * (ABNORMAL) Lipid Panel, Standard (06/07/2024 9:54 AM EST) Triglycerides 174(H) <150 mg/dL [facility] Comment:Desirable Triglyceri de: less than 150 mg/dLBorderline High Triglyceride 150-199 mg/dLHigh Triglyceride: 200-499 mg/dLVery High Triglyceride: greater than or equal to 5OO mg/dL Cholesterol 227(H) <200 mg/dL [facility] Comment:Desirable Cholestero l: less than 200 mg/dLBorderline High Cholesterol: 200-239 mg/dLHigh Cholesterol: greater than 239 mg/dL LDL Cholesterol Calculated 160(H) <100 mg/dL [facility] Comment:Desirable LDL: less than 100 mg/dLNear Optimal/Above Optimal LDL: 110- 129 mg/dLBorderline High LDL: 130-159 mg/dLHigh LDL: 160-189 mg/dLVery High LDL: greater than or equal to 190 mg/dL HDL Cholesterol 33(L) >40 mg/dL [facility] Comment:Desirable HDL: great er than 40 mg/dL Note: This HDL assay may give artificially low results in patients with liver disease. Blood Venous blood specimen / Unknown 06/07/2024 9:54 AM EST 06/07/2024 11:10 AM EST Korey Ocampo MD LAB BLOOD ORDERABLES Final Resul t [facility] [address] [place] [address] [phone] from Last 3 Months or Most Recently Relevant to Health Maintenance Insurance [facility] [employer] (O D-SNP) [place] [id number] Care Teams Land Reclamation Specialist Relationship Specialty Start Date End Date Name, MD Korey [address] [place] [phone] PCP - General Family Medicine 11/05/15
--- OUTSIDE RECORDS SUMMARY | 2025-04-18 12:28 | XMS_ITS | Encounter Summary ---
Author Organization [employer] Address [address] [facility] 7[address] [place] [address] Care Team Providers Care Process Control Tech Name Role Phone Name, Korey MAIN Primary Care Provider [phone] Reason for Visit * Reason Onset Date Comments Ortho Appt 09/28/2023 Encounter Details Date Type Department Care Team ([facility] st Contact Info) Description 09/28/2023 Telephone [facility] MEDICINE [address] [place] [address] Name, MD Korey [address] [place] [address] Ortho Appt Social History Tobacco Use Types [...] 09/28/2023 12:06 PM EST Pt call requesting freelance writer to schedule appt with [facility], freelance writer do so and make appt for pt in October 25 at 2:00 PM documented in this encounter Plan of Treatment Upcoming Encounters Date Type Department Care Team (Late st Contact Info) Description 04/19/2025 1:00 PM EDT Medication Management [address] [address] Melvi Lindsay, PharmD [address] [place] [address] 05/15/2025 2:00 PM EDT Medication Management [address] [address] Melvi Lindsay, PharmD [address] [place] [address] 06/17/2025 3:15 PM EST Office Visit [address] [address] Name, MD Korey [address] [place] [address] 07/03/2025 11:30 AM EST Clinical Support [address] [place] [address] Katharina Matt, RN documented as of this encounter Visit Diagnoses Not on filedocumented in this encounter Additional Health Concerns Assessment Noted Time PHQ-9 Depression Total Score: 0 09/14/19 24 2:31 PM EST documented as of this encounter Care Teams Process Control Tech Relationship Specialty Start Date End Date Name, MD Korey [address] [place] [address] PCP - General Family Medicine 11/05/15 documented as of this encounter
--- OUTSIDE RECORDS SUMMARY | 2025-04-18 12:28 | XMS_ITS | Encounter Summary ---
Author Organization [employer] Address [address] [place] [address] 7[address] [place] [address] Care Team Providers Care Chandelier Maker Name Role Phone Korey Parekh MD Primary Care Provider Reason for Referral * Consultation (Routine) - Authorized Specialty Diagnoses / Procedures Referred By Adam cooley Referred To Contact Pharmacy Diagnoses Type 2 diabetes mellitus with hyperglycemia, without long-term current use of insulin ([facility]) Korey Parekh MD [address] [place] [address] Phone: tel: fax: Referral ID Status Reason Start Date Expiration Date Visits Requested Visits Authorized [id number] Authorized Consult and Treat 04/17/2025 04/17/2026 6 6 Encounter Details Date Type Department Care Team ([facility] st Contact Info) Description 04/16/[address] [facility] MEDICINE [address] [place], [place] [phone] Melvi Lindsay PharmD [address] [place], [place] [phone] Social History Tobacco Use Types Packs/Day Years [...] as of this encounter Miscellaneous Notes * Addendum Note - Korey Parekh MD - 04/17/2025 6:30 AM EDTAddended by: KOREY PAREKH on: 04/17/2025 06:30 AM Modules accepted: Orders * Telephone Encounter - Melvi Lindsay PharmD - 04/16/2025 3:47 PM EDT Patient has upcoming CDTM apt 04/18 but we are requesting an updated CDTM referral with a diagnosis of diabetes. This is to replace existing referral which no does not meet visit requirements Please send when able. Thank you! documented in this encounter Plan of Treatment Upcoming Encounters Date Type Department Care Team (Late st Contact Info) Description 04/19/2025 1:00 PM EDT Medication Management [address] [address] Melvi Lindsay PharmD [address] [place] [phone] 05/15/2025 2:00 PM EDT Medication Management [address] [address] Melvi Lindsay PharmD [address] [place] [phone] 06/17/2025 3:15 PM EST Office Visit [address] [address] Name, MD Korey [address] [place] [phone] 07/03/2025 11:30 AM EST Clinical Support [address] [address] Katharina Matt, GABE Scheduled Referrals Name Type Priority Associated Diagnoses Orde r Schedule Referral to Pharmacy CDTM Outpatient Referral Routine Type 2 diabetes mellitus with hyperglycemia, without long-term current use of insulin ([facility]) Ordered: 04/17/2025 documented as of this encounter Visit Diagnoses Diagnosis Type 2 diabetes mellitus with hyperglycemia, without long-term current use of insulin ([facility])- Primary documented in this encounter Additional Health Concerns Assessment Noted Time PHQ-9 Depression Total Score: 0 04/04/20 25 11:37 AM EDT documented as of this encounter Care Teams Chandelier Maker Relationship Specialty Start Date End Date Name, MD Korey [address] [place] [phone] PCP - General Family Medicine 11/05/15 documented as of this encounter
--- OUTSIDE RECORDS SUMMARY | 2025-04-18 12:28 | XMS_ITS | Encounter Summary ---
Author Organization [employer] Address [address] [place] [address] 7 [place] [address] Care Team Providers Care Air Bag Curer Name Role Phone Name, Korey MAIN Primary Care Provider [phone] Reason for Visit * Reason Comments Med Refill Encounter Details Date Type Department Care Team (Late Contact Info) Description 04/05/2023 Telephone [facility] [address] [place] [address] [phone] Name, MD Korey [address] [place] [address] [phone] Med Refill Social History Tobacco Use Types [...] Department Care Team (Late Contact Info) Description 04/19/2025 1:00 PM EDT Medication Management [facility] [address] [place] [address] [phone] Melvi Lindsay, PharmD [address] [place], [place] [phone] 05/15/2025 2:00 PM EDT Medication Management [address] [address] Melvi Lindsay PharmD [address] [place] [address] 06/17/2025 3:15 PM EST Office Visit [address] [address] Name, MD Korey [address] [place] [address] 07/03/2025 11:30 AM EST Clinical Support [address] [address] Katharina Matt, GABE documented as of this encounter Visit Diagnoses Diagnosis Non-seasonal allergic rhinitis, unspecified trigger documented in this encounter Care Teams Air Bag Curer Relationship Specialty Start Date End Date Name, MD Korey [address] [place] [address] PCP - General Family Medicine 11/05/15 documented as of this encounter
--- OUTSIDE RECORDS SUMMARY | 2025-04-18 12:28 | XMS_ITS | Encounter Summary ---
Author Organization [employer] Address [address] [facility] 7t [place] [address] Care Team Providers Care River Expedition Guide Name Role Phone Name, Korey MAIN Primary Care Provider [phone] Reason for Visit * Reason Comments Med Refill Encounter Details Date Type Department Care Team (Late st Contact Info) Description 07/26/2023 Refill [facility] 230 [place], [place] [phone] Name, MD Korey 230 [place], [place] [phone] Social History Tobacco Use Types Packs/Day Years [...] Description 04/19/2025 1:00 PM EDT Medication Management [address] [address] Melvi Lindsay, PharmD [address] [place] [address] 05/15/2025 2:00 PM EDT Medication Management [address] [address] Melvi Lindsay, PharmD [address] [place] [address] 06/17/2025 3:15 PM EST Office Visit [address] [address] Name, MD Korey [address] [place] [address] 07/03/2025 11:30 AM EST Clinical Support [address] [address] Katharina Matt, GABE documented as of this encounter Visit Diagnoses Not on filedocumented in this encounter Care Teams River Expedition Guide Relationship Specialty Start Date End Date Name, MD Korey [address] [place] [address] PCP - General Family Medicine 11/05/15 documented as of this encounter
--- OUTSIDE RECORDS SUMMARY | 2025-04-18 12:28 | XMS_ITS | Encounter Summary ---
Author Organization [employer] Address [address] [facility] 7t [place] [address] Care Team Providers Care Chop Saw Operator Name Role Phone Name, Korey MAIN Primary Care Provider [phone] Reason for Visit * Reason Comments Med Refill Encounter Details Date Type Department Care Team ([facility] st Contact Info) Description 10/11/2023 Refill [facility] MED [facility] [address] [place], [place] [phone] Name, MD Korey 230 [place] [address] Social History Tobacco Use Types Packs/Day Years [...] Description 04/19/2025 1:00 PM EDT Medication Management [address] [address] Melvi Lindsay, PharmD [address] [place] [address] 05/15/2025 2:00 PM EDT Medication Management [address] [address] JanieiaMelvi, PharmD [address] [place] [address] 06/17/2025 3:15 PM EST Office Visit [address] [address] NameKorey MD [address] [place] [address] 07/03/2025 11:30 AM EST Clinical Support [address] [address] Katharina Matt RN documented as of this encounter Visit Diagnoses Not on filedocumented in this encounter Additional Health Concerns Assessment Noted Time PHQ-9 Depression Total Score: 0 09/14/19 24 2:31 PM EST documented as of this encounter Care Teams Chop Saw Operator Relationship Specialty Start Date End Date Korey Ocampo MD [address] [place] [address] PCP - General Family Medicine 11/05/15 documented as of this encounter
--- OUTSIDE RECORDS SUMMARY | 2025-04-18 12:28 | XMS_ITS | Encounter Summary ---
Author Organization [employer] Address [address] [place] [address] 7t [place] [address] Care Team Providers Care Reservations Clerk Name Role Phone Name, Korey MAIN Primary Care Provider [phone] Reason for Visit * Reason Comments Med Refill Encounter Details Date Type Department Care Team (Late Contact Info) Description 04/11/2023 Refill [facility] MED [facility] PEDS [address] [place], [place] [phone] [facility] 230 [place], [place] [phone] Arthralgia of multiple joints Social History Tobacco [...] Description 04/19/2025 1:00 PM EDT Medication Management [facility] 230 [place], [place] [phone] Melvi Lindsay, PharmD 230 [place], [place] [phone] 05/15/2025 2:00 PM EDT Medication Management [address] [address] Melvi Lindsay, Naima [address] [place] [address] 06/17/2025 3:15 PM EST Office Visit [address] [address] Korey Ocampo MD [address] [place] [address] 07/03/2025 11:30 AM EST Clinical Support [address] [address] Katharina Matt, GABE documented as of this encounter Visit Diagnoses Diagnosis Arthralgia of multiple joints Pain in joint, multiple sites documented in this encounter Care Teams Reservations Clerk Relationship Specialty Start Date End Date Korey Ocampo MD [address] [place] [address] PCP - General Family Medicine 11/05/15 documented as of this encounter
--- OUTSIDE RECORDS SUMMARY | 2025-04-18 12:28 | XMS_ITS | Encounter Summary ---
Author Organization [employer] Address [address] [facility] 7t [place] [address] Care Team Providers Care Drilling Inspector Name Role Phone Name, Korey MAIN Primary Care Provider [phone] Encounter Details Date Type Department Care Team (Latest Contact Info) Description 04/15/2025 Travel Social History Tobacco Use Types Packs/Day [...] Description 04/19/2025 1:00 PM EDT Medication Management [address] [address] Melvi Lindsay PharmD [address] [place] [address] 05/15/2025 2:00 PM EDT Medication Management [address] [address] JanieiaMelvi, PharmD [address] [place] [place] [address] 06/17/2025 3:15 PM EST Office Visit [address] [address] Name, MD Korey [address] [place] [place] [address] 07/03/2025 11:30 AM EST Clinical Support [address] [address] Katharina Matt, GABE documented as of this encounter Visit Diagnoses Not on filedocumented in this encounter Additional Health Concerns Assessment Noted Time PHQ-9 Depression Total Score: 0 04/04/20 25 11:37 AM EDT documented as of this encounter Care Teams Drilling Inspector Relationship Specialty Start Date End Date Name, MD Korey 230 [place] [address] PCP - General Family Medicine 11/05/15 documented as of this encounter
--- OUTSIDE RECORDS SUMMARY | 2025-04-18 12:28 | XMS_ITS | Encounter Summary ---
Author Organization [employer] Address [address] [facility] 7t [place] [address] Care Team Providers Care Weight Analyst Name Role Phone Name, Korey MAIN Primary Care Provider [phone] Encounter Details Date Type Department Care Team (Latest Contact Info) Description 04/18/2025 Travel Social History Tobacco Use Types Packs/Day [...] Description 04/19/2025 1:00 PM EDT Medication Management [address] [address] Melvi Lindsay PharmD [address] [place] [address] 05/15/2025 2:00 PM EDT Medication Management [address] [address] JanieiaMelvi, PharmD [address] [place] [address] 06/17/2025 3:15 PM EST Office Visit [address] [address] Name, MD Korey [address] [place] [address] 07/03/2025 11:30 AM EST Clinical Support [address] [address] Katharina Matt, GABE documented as of this encounter Visit Diagnoses Not on filedocumented in this encounter Additional Health Concerns Assessment Noted Time PHQ-9 Depression Total Score: 0 04/04/20 25 11:37 AM EDT documented as of this encounter Care Teams Weight Analyst Relationship Specialty Start Date End Date Name, MD Korey 230 [place] [address] PCP - General Family Medicine 11/05/15 documented as of this encounter
--- OUTSIDE RECORDS SUMMARY | 2025-04-18 12:28 | XMS_ITS | Encounter Summary ---
Author Organization [employer] Address [address] [place] [address] 7t [place] [address] Care Team Providers Care Mud Jack Operator Name Role Phone Name, Korey MAIN Primary Care Provider [phone] Reason for Visit * Reason Comments Med Refill Encounter Details Date Type Department Care Team (Late Contact Info) Description 04/28/2023 Refill [facility] CH[facility] MED & PEDS [address] [place], [place] [phone] Name, MD Korey 230 [place] [address] Arthralgia of multiple joints Social History Tobacco [...] Description 04/19/2025 1:00 PM EDT Medication Management [facility] MED[facility]INE 230 [place], [place] [phone] Melvi Lindsay, PharmD 230 [place], [place] [phone] 05/15/2025 2:00 PM EDT Medication Management [address] [address] Melvi Lindsay, Naima [address] [place] [address] 06/17/2025 3:15 PM EST Office Visit [address] [address] Korey Ocampo MD [address] [place] [address] 07/03/2025 11:30 AM EST Clinical Support [address] [address] Katharina Matt, GABE documented as of this encounter Visit Diagnoses Diagnosis Arthralgia of multiple joints Pain in joint, multiple sites documented in this encounter Care Teams Mud Jack Operator Relationship Specialty Start Date End Date Korey Ocampo MD [address] [place] [address] PCP - General Family Medicine 11/05/15 documented as of this encounter
--- OUTSIDE RECORDS SUMMARY | 2025-04-18 12:28 | XMS_ITS | Encounter Summary ---
Author Organization [employer] Address [address] [place] [address] 7t [place] [address] Care Team Providers Care Guest Service Manager Name Role Phone Name, Korey MAIN Primary Care Provider [phone] Reason for Visit * Reason Onset Date Comments Referral 04/08/2025 Encounter Details Date Type Department Care Team ([facility] st Contact Info) Description 04/08/2025 Telephone [facility] MEDICINE 230 [place], [place] [phone] Name, MD Korey 230 [place] [address] Referral Social History Tobacco Use Types Packs/Day Years [...] Telephone Encounter - Angela Caro RN - 04/09/2025 9:21 AM EDT No consent listed in chart to speak to pt's FACILITIES ENGINEER. T/C to pt via [facility] Grinding Operator Jessica #[phone] for status check. No answer, v/m left to return call to [place] team nurses. * Telephone Encounter - Angel Knight - 04/08/2025 1:15 PM EDT Tc from Jassi, pt's FACILITIES ENGINEER, requesting a referral for podiatry for pt. Please contact Jassi at [phone]. (Yemeni Speaker) documented in this encounter Plan of Treatment Upcoming Encounters Date Type Department Care Team ([facility] st Contact Info) Description 04/19/2025 1:00 PM EDT Medication Management [facility] MEDICINE 230 [place] [address] Pu[place], Naima Ogden [address] [place] [address] 05/15/2025 2:00 PM EDT Medication Management [address] [address] Melvi Lindsay PharmD [address] [place] [address] 06/17/2025 3:15 PM EST Office Visit [address] [address] Name, MD Korey [address] [place] [address] [phone] 07/03/2025 11:30 AM EST Clinical Support [address] [phone] Katharina Matt RN documented as of this encounter Visit Diagnoses Not on filedocumented in this encounter Additional Health Concerns Assessment Noted Time PHQ-9 Depression Total Score: 0 04/04/20 25 11:37 AM EDT documented as of this encounter Care Teams Guest Service Manager Relationship Specialty Start Date End Date Name, MD Korey [address] [place] [address] [phone] PCP - General Family Medicine 11/05/15 documented as of this encounter
[2025-04-18 13:44] LABS: Alanine Aminotransferase 30 U/L (0-40); Albumin Level 4.4 g/dL (3.5-5.0); Alkaline Phosphatase 75 U/L (39-117); Aspartate Amino Transferase 31 U/L (5-37); Cholesterol 205 mg/dL (<200); HDL Cholesterol 30 mg/dL (>40); Total Protein 7.7 g/dL (6.5-8.0); Triglycerides 207 mg/dL (<150)
[2025-04-18 14:27] LABS: Reflex LDLD? No
[2025-04-18 14:28] LABS: Microalbum/Creatinine Ratio Ur 18.2 ug/mg cr (<30)
== END 2025-04-18 10:29 | disposition home or self-care (01) ==
LOC: HO.HHCL 10:28
PROVIDERS: PCP Internal Medicine Geriatric Medicine; Visit Provider Internal Medicine Geriatric Medicine
DX: E11.65 Type 2 diabetes mellitus with hyperglycemia (principal)
CPT/HCPCS: 36415; 80061; 80076; 82043; 82570